=== PATIENT | female | born 1945 | race Caucasian/White ===

== ENCOUNTER 2023-03-22 09:00 | Emergency (ER) | payer MEDICARE, BC, SELFPAY ==
[2023-03-22 09:08] VITALS: BP 140/71; PULSE 89; RESP 20; TEMP 36; O2SAT 94; BMI 24.8
--- NOTE | 2023-03-22 09:20 | ED.GENADULT ---
HPI - General Adult General Time Seen by Provider: 09:20 Date Seen: 03/22/23 Chief complaint: Hip Injury/Pain Stated complaint: Hip pain Time Seen by Provider: 03/22/23 09:20 Source: patient and RN notes reviewed Mode of arrival: ambulatory Limitations: no limitations History of Present Illness HPI narrative: This 77-year-old female presents to the ED of her own accord with complaint of back pain, hip pain, possible abdominal pain. She was recently started on metformin and dosage was increased. She states she has not had a bowel movement since , wonders if she could be constipated. She states she still eating, wonders were it is all going. Denies any nausea or vomiting, no fevers, no urinary symptoms. When I ask her where she is hurting today she points to her right side of her abdomen and then into the right back and flank area down to the right hip area. She states if I asked her to try to get out of bed alone she would not be able to do so due to pain. She cannot tell me if this is more abdominal pain or back pain. She does wonder about constipation. Pain is not going into the leg. It is not really hurting her in her hip to walk. She denies any trauma. Sounds if it hurts with movement but that there is also abdominal discomfort. Related Data Home Medications Medication Instructions Recorded Confirmed amlodipine 2.5 mg tablet 2.5 mg PO BID 03/22/23 03/22/23 metformin 500 mg tablet,extended 500 mg PO DAILY 03/22/23 03/22/23 release 24 hr Allergies Allergy/AdvReac Type Severity Reaction Status Date / Time No Known Drug Allergies Allergy Verified 03/22/23 09:15 Review of Systems Status of ROS: Reports: 6 or more systems reviewed and unremarkable except as noted in History and below PFSH PFS Social History Smoking Status: Never smoker Do you use any of these nicotine containing products: None Second hand tobacco smoke exposure: No How often do you have a drink containing alcohol: monthly or less How often do you have six or more drinks on one occasion: Never AUDIT-C Alcohol total score: 1 Non-prescribed substance use: denies use service: No Exam Const: Vital Signs, click to edit/add: Vital Signs - 24 hr 03/22/23 09:08 03/22/23 11:11 03/22/23 13:12 Temperature 96.8 F L 99.6 F Pulse Rate [Pulse Oximeter] 89 88 90 Respiratory Rate 20 16 20 Blood Pressure [Le ft Upper Arm] 140/71 H 137/70 125/60 Pulse Oximetry 94 97 95 Oxygen Delivery Me thod Room Air Room Air Room Air Documenting provider has reviewed patient's vital signs: yes Common normals: no apparent distress, average body habitus, oriented x3, no limitations, healthy appearing, alert and well nourished General appearance: cooperative, comfortable, well kempt and well developed HENMT: Common normals: normocephalic, head/scalp atraumatic, hearing grossly normal bilaterally, external ears normal, external nose normal, nasal mucous membranes and turbinates normal, moist oral mucous membranes and oropharynx normal Head and scalp: normocephalic and atraumatic Face and sinus: normal facial exam Nose: external nose normal and nasal mucous membranes and turbinates normal External ear: external ears normal Eye: Common normals: PERRL, EOMs intact bilaterally, conjunctivae normal and no scleral icterus Conjunctiva: conjunctiva(e) normal Pupil: PERRL Neck & C-Spine: Common normals: full ROM, no lymphadenopathy and supple Resp: Common normals: normal respiratory effort, no retractions, no use of accessory muscles and clear to auscultation bilaterally Effort & inspection: able to speak in complete sentences Auscultation: clear to auscultation bilaterally Cardio: Common normals: regular rate, regular rhythm, S1 normal heart sound, S2 normal heart sound, no gallops and no clicks Rate: regular rate Rhythm: regular rhythm Heart sounds: S1 normal and S2 normal Other: Soft systolic murmur, about 1/6, heard best upper sternal borders. GI: Common normals: Normal to inspection, nondistended, normoactive bowel sounds present, soft to palpation, non-tender, no hepatosplenomegaly, no masses and no bruits Palpation: soft and no hepatosplenomegaly : Common normals: no CVA tenderness Bladder/kidney exam: no CVA tenderness Back & Pelvis: Common normals: no CVA tenderness, thoracic and lumbar spine normal to inspection, no thoracic nor lumbar tenderness and straight leg raise negative bilaterally Other: Seems to have some discomfort when ask her to roll to her side but I cannot palpate any reproducible pain along the ribs her paraspinous muscles, midline back. Extremity: Common normals: normal to inspection and full ROM Neuro: Common normals: oriented x3 Sensorium/orientation: alert Psych: Appearance: well kempt Course Course Hospital Course: It is difficult to differentiate on exam and history whether not this is musculoskeletal or potential abdominal pain. I am going to start with plain films of her lumbar spine as well as flat and upright of her abdomen. She is reporting diminished stooling, possible constipation. Will look at the plain films of her abdomen and see if there is a significant stool burden, rule out any obstructive pathology. She is still taking in orals, no nausea vomiting, clinically would make this much less likely to be any obstructive pathology. I will obtain baseline labs. She seems to be actually comfortable. Will see what we can find on the plain films and laboratory evaluation. Reevaluation(s) Time of Reevaluation #1: 10:47 Reevaluation #1: Reviewed with patient the findings of constipation and dilated bowel on her abdominal film. Her white blood count is elevated with predominance of neutrophils. We will give her an Enemeez but I also think we really should do a CT of her abdomen to ensure no underlying pathology. She does agree to this. Time of Reevaluation #2: 13:23 Reevaluation #2: Have reviewed that her CT is only showing constipation, there is also a 2.1 cm left adnexal cystic lesion with a follow-up outpatient pelvic ultrasound recommended. I do not feel that this ovarian cyst is responsible for any of her symptoms clinically from what I am seeing. She thought she had MiraLax at home but had a recent move, could not find it. We are going to have her re-initiate some layer a lax, good a clear liquid diet for 24-48 hours until she started stooling, use senna for the next 24-48 hours with the MiraLax. She will need the ultrasound obtained outpatient, will have her follow up in clinic. There certainly is some degenerative changes on her x-ray but her exam and clinical picture is not supportive of any radiculopathy. Vital Signs Vital signs: Initial Vital Signs Temperature 96.8 F L 03/22/23 09:08 Temperature Source Temporal Artery Scan 03/22/23 09:08 Pulse Rate 89 06/26/23 09:08 Respiratory Rate 20 03/22/23 09:08 Blood Pressure 140/71 H 03/22/23 09:08 Blood Pressure Mean 94 03/22/23 09:08 Blood Pressure Position Supine 03/22/23 09:08 Pulse Oximetry 94 03/22/23 09:08 Oxygen Delivery Method Room Air 03/22/23 09:08 Vital Signs Temperature 96.8 F L 03/22/23 09:08 Pulse Rate 89 03/22/23 09:08 Respiratory Rate 20 03/22/23 09:08 Blood Pressure 140/71 H 03/22/23 09:08 Pulse Oximetry 94 03/22/23 09:08 Oxygen Delivery Method Room Air 03/22/23 09:08 Temperature 99.6 F 03/22/23 11:11 Pulse Rate 90 03/22/23 13:12 Respiratory Rate 20 03/22/23 13:12 Blood Pressure 125/60 03/22/23 13:12 Pulse Oximetry 95 03/22/23 13:12 Oxygen Delivery Method Room Air 03/22/23 13:12 Medical Decision Making Lab Data Lab results reviewed: Yes I reviewed the patient's lab results Labs: Lab Results 03/22/23 Range/Units 10:08 WBC 13.91 H (4.50-11.00) K/uL RBC 4.64 (4.00-5.20) m/uL Hgb 12.6 (12.0-16.0) gm/dL Hct 38.3 (33.0-51.0) % MCV 83 (80-100) fL MCH 27 (26-34) pg MCHC 33 (32-36) gm/dL RDW Coeff of [place] 13.9 (11.5-15.5) % Plt Count 206 (140-440) K/uL Neut % (Auto) 91.6 H (42.0-72.0) % Lymph % (Auto) 2.5 L (20-44) % [place] % (Auto) 5.3 (0.0-11.0) % Eos % (Auto) 0.1 (0.0-7.0) % Baso % (Auto) 0.1 (0.0-3.0) % Neut # (Auto) 12.70 H (1.7-7.0) K/uL Lymph # (Auto) 0.30 L (0.90-2.90) K/uL [place] # (Auto) 0.70 (0.00-0.90) K/UL Eos # (Auto) 0.00 (0.00-0.50) K/uL Baso # (Auto) 0.00 (0.00-0.30) K/uL Sodium 135 (135-149) mmol/L Potassium 4.0 (3.6-5.1) mmol/L Chloride 101 (96-114) mmol/L Carbon Dioxide 25 (20-32) mmol/L BUN 12 (7-30) mg/dL Creatinine 0.7 (0.5-1.5) mg/dL Estimated Creat Clear 39.59 Estimated GFR 90 ml/min Glucose 243 H (60-115) mg/dL Lactate 1.0 (0.5-1.9) mmol/L Calcium 9.0 (8.4-10.6) mg/dL Total Bilirubin 0.6 (0.1-1.5) mg/dL AST 22 (12-35) U/L ALT 22 (4-35) U/L Alkaline Phosphatase 74 (40-150) U/L C-Reactive Protein 25.7 H (0.5-1.0) mg/dL Total Protein 7.4 (6.0-8.3) g/dL Albumin 4.1 (3.3-5.0) g/dL Lipase 56 (23-300) U/L Imaging Data Abdominal x-ray: Attestation: I have reviewed the pertinent imaging results. My impression: See stool burden in the colon and dilated colon, await Radiology over-read Radiologist's impression: Patient: YOSSI WINTER Facility:?[facility] Patient ID:?[id number] Site Patient ID:?[id number]. Site :?1945 Study:?XRay Abdomen 2 views-03/22/2023 9:59:18 AM Ordering Physician:Jennifer López Final Report: INDICATION: Complaints of constipation TECHNIQUE: Upright and supine views. COMPARISON: None available FINDINGS: There is a nonspecific, nonobstructive bowel gas pattern. There is a moderate to severe diffuse amount of intracolonic fecal distention. There is no intra-abdominal free air or pathologic calcification. There is no acute osseous abnormality. IMPRESSION: Moderate to severe stool seen throughout the colon consistent with constipation. Dictated by Rory Hastings MD @ 03/22/2023 10:22:20 AM (Electronic Signature) XR lumbar spine: Attestation: I have reviewed the pertinent imaging results. Radiologist's impression: Patient: [facility] Facility:?[facility] Patient ID:?[id number] Site Patient ID:?[id number]. Site :?1945 Study:?XRay Spine Lumbar 2 views-03/22/2023 9:59:51 AM Ordering Physician:?Stalin López Final Report: Indication: Low back pain Comparison: None available. Technique: AP and lateral views lumbar spine were obtained. Findings: The lumbar vertebral body heights are grossly maintained with straightening of the normal lumbar lordosis. There is anterolisthesis of L4 on L5. There is no evidence of displaced fracture or dislocation. There is moderate multilevel degenerative disc disease with disc height loss and marginal osteophyte formation. There is moderate facet arthrosis. The soft tissues are unremarkable. Impression: Moderate degenerative changes of the lumbar spine without acute osseous abnormality. Dictated by Rory Hastings MD @ 03/22/2023 10:27:03 AM (Electronic Signature) CT scan - abdomen: Attestation: I have reviewed the pertinent imaging results. Radiologist's impression: Patient: [facility] Facility:?[facility] Patient ID:?[id number] Site Patient ID:?[id number]. Site :?1945 Study:?CT Abdomen/Pelvis w/ 69cc Fzeubj-468-1/26/2023 11:55:44 AM Ordering Physician:?Stalin López Final Report: INDICATION: Leukocytosis, abdominal pain and right flank pain. Abnormal x-ray TECHNIQUE: Axial images were obtained from the diaphragm to the pubic symphysis. Reformats were obtained in the coronal and sagittal plane. IV Contrast: 69 cc Isovue 370 Oral Contrast: None COMPARISON: None. FINDINGS: Lower chest: Basilar discoid atelectasis. Liver: Normal in contour with 15 millimeter cyst within the right lobe of the liver. Gallbladder and bile ducts: Unremarkable. No stones or inflammation. No biliary dilatation. Spleen: Calcifications within the spleen consistent with old granulomatous disease. Pancreas: Unremarkable. No mass or inflammation. Adrenal glands: Unremarkable. No nodules. Kidneys: Symmetric enhancement without hydronephrosis. Subcentimeter hypodense lesion within the lower pole left kidney, too small for characterization. Vasculature: Atherosclerosis without abdominal aortic aneurysm. GI tract: Minimal hiatal hernia. Stomach is decompressed. Small bowel decompressed. Unremarkable appendix. Large amount of stool within the colon. Pelvis: Trace free fluid in the deep pelvis. Left adnexal cyst measuring 2.1 centimeters. 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 IMPRESSION: 1. No dilated loops of large or small intestine with a large amount of stool within the colon. 2. Left adnexal cystic lesion measuring 2.1 centimeters. Follow-up outpatient pelvic ultrasound suggested. Please note that all CT scans at this facility use dose modulation, iterative reconstruction, and/or weight-based dosing when appropriate to reduce radiation dose to as low as reasonably achievable. Dictated by Preet Zuniga MD @ 03/22/2023 1:06:19 PM (Electronic Signature) Discharge Plan Discharge Clinical Impression: Cyst, ovarian, Degenerative joint disease (DJD) of lumbar spine, Acute constipation Patient Disposition: Home, Self-Care Condition: Stable Instructions: Ovarian Cyst (ED), Constipation (ED), Acute Low Back Pain (ED) Additional Instructions: Need to schedule a follow-up clinic appointment within the next week. They will need to schedule a pelvic ultrasound to further evaluate this left ovarian cyst that was seen on CT. For the constipation, initiate MiraLax 17 g daily. Would recommend going on a clear liquid diet for the next 24-48 hours as needed for ongoing constipation symptoms. Can add in senna 1-2 tablets once to twice a day as needed until stool production starts to happen. You may get significant increased abdominal cramping, hot showers, heating pad can all help with abdominal cramping. You are certainly able to take Tylenol and ibuprofen as needed for pain or symptom control, follow bottle directions dosing instructions. If you develop severe abdominal pain with fever vomiting, do recommend re-evaluation. Once you start having good stool production, can stop the senna but consider stain on MiraLax. Do recommend return to a high-fiber diet once you are stooling adequately. Activity Level: Activity as Tolerated Prescriptions: No Action amlodipine 2.5 mg tablet 2.5 mg PO BID metformin 500 mg tablet extended release 24 hr 500 mg PO DAILY Follow Up/Referrals: Conchita Hussein MD [Primary Care Provider] - Stand Alone Forms: [facility] Info Instructions
--- NOTE | 2023-03-22 09:27 | CRLHL7_ITS ---
For Patients: As a result of the Century Cures Act, medical imaging exams and procedure reports are released immediately into your electronic medical record. You may view this report before your referring provider. If you have questions, please contact your health care provider. Indication: Low back pain Comparison: None available. Technique: AP and lateral views lumbar spine were obtained. Findings: The lumbar vertebral body heights are grossly maintained with straightening of the normal lumbar lordosis. There is anterolisthesis of L4 on L5. There is no evidence of displaced fracture or dislocation. There is moderate multilevel degenerative disc disease with disc height loss and marginal osteophyte formation. There is moderate facet arthrosis. The soft tissues are unremarkable. Impression: Moderate degenerative changes of the lumbar spine without acute osseous abnormality. Dictated by Rory Hastings MD @ 03/22/2023 10:27:03 AM (Electronically Signed)
--- NOTE | 2023-03-22 09:27 | CRLHL7_ITS ---
For Patients: As a result of the Century Cures Act, medical imaging exams and procedure reports are released immediately into your electronic medical record. You may view this report before your referring provider. If you have questions, please contact your health care provider. INDICATION: Complaints of constipation TECHNIQUE: Upright and supine views. COMPARISON: None available FINDINGS: There is a nonspecific, nonobstructive bowel gas pattern. There is a moderate to severe diffuse amount of intracolonic fecal distention. There is no intra-abdominal free air or pathologic calcification. There is no acute osseous abnormality. IMPRESSION: Moderate to severe stool seen throughout the colon consistent with constipation. Dictated by Rory Hastings MD @ 03/22/2023 10:22:20 AM (Electronically Signed)
--- OUTSIDE RECORDS SUMMARY | 2023-03-22 09:42 | XMS_ITS | Continuity of Care Document ---
Author Name Unknown Organization [facility] Address [address] [place] [address] Phone Care Team Providers Care Street Inspector Name Role Phone Sacha DE LEON, Amisheela Unavailable Unavailable Allergies, Adverse Reactions, Alerts Substance Reaction Status Criticality No Known Allergies Active No Inform ation Procedures Procedure Date Office/Outpatient Visit,Est, Mod 2021 X-Ray Exam Of Neck Spine2-3 Views HOLD Office/Outpatient Visit,Est, Mod 2018 X-Ray Exam Of Neck Spine2-3 Views Office/Outpatient Visit,Est, Mod 2017 X-Ray Exam Of Neck Spine2-3 Views Postop Followup Visit X-Ray Exam Of Neck Spine2-3 Views Postop Followup Visit X-Ray Exam Of Neck Spine2-3 Views Pa Neck Spine Fuse & Removal Addl Pa Addl Neck Spine Fusion Neck Spine Fusion (Cerv,Below C2) Pa Assist Spine Fusion, Each Add'Lverteb ra Pa Assist Insert Spine Seg Fix, Post, 3- 6 Seg Neck Spine Fuse & Removal Addl 18 Addl Neck Spine Fusion Neck Spine Fusion (Cerv,Below C2) Spine Fusion, Each Add'Lvertebra 2017 Insert Spine Seg Fix, Post, 3-6 Seg Allograft, Spine Surg, Structural Office/Outpatient Visit,New, Mod 2017 X-Ray Exam Of Neck Spine, 4+ Views Advance Directives Directive Yes / No Effective Date File Name No Information Encounters Encounter Description Practice Location Reason(s) For Visit Diagnoses Date Provider Providers Copied on Encounter Office/Outpat ient Visit,Est, Mod [facility], [address], [place], [place], [id number], [place] tel:[phone] [facility] No Information 2 [facility]a [facility], [address] [place] [address], [place], [place], [id number] , [place]. tel:[phone] Referring Provider: Adama Rayo, [address], [address]. tel:[phone] Office/Outpat ient Visit,Est, Mod [facility], [address], [place], [place], [id number], [place] tel:[phone] [facility] Post Op - Normal Follow-upArth rodesis status 9 [facility], [address] [place] [address], [place], [place], [id number] , [place]. tel:[phone] Referring Provider: Adama Rayo [address], [address]. tel:[phone] Office/Outpat ient Visit,Est, Mod [facility], [address], [place], [id number], [place] tel:[phone] [facility] Spinal stenosis, cervical region 201 8 Иван Flowers. [address] [place] [address], [facility], [place], [id number] , [place]. tel:[phone] Referring Provider: Adama Rayo [address], [address]. tel:[phone] [facility], [address], [place], [id number], [place] tel:[phone] [facility] Arthrodesis status Иван Flowers. [address] [place] [address] [place], [id number] , [place]. tel:[phone] Referring Provider: Adama Rayo [address], [address]. tel:[phone] [facility], [address], [place], [id number], [place] tel:[phone] [facility] Post Op - Normal Follow-upArth rodesis status 8 Mehbod Amir. [facility], [address] [place] [address], [place], [place], [id number] , [place]. tel:[phone] Referring Provider: Adama Rayo [address], [address]. tel:[phone] [facility], [address], [place], [id number], [place] tel:[phone] [facility] No Information Иван Flowers. [address] [place] [address], [place], [id number] , [place]. tel:[phone] Referring Provider: Adama Rayo [address], [address]. tel:[phone] [facility], [address], [place], [id number], [place] tel:[phone] [facility] No Information 8 Mehbod Amir. [facility] [place], [address] [place] [address], [place], [place], [id number] , [place]. tel:[phone] Referring Provider: Adama Rayo [address], [address]. tel:[phone] Office/Outpat ient Visit,New, Mod [facility], [address], [place], [place], [id number], tel:[phone] [facility] - [facility] Cervical disc disorder w myelopathy, high cervical region 8 Sacha [facility], [address], [place], [place], [id number] , [place]. tel:[phone] Referring Provider: Adama Rayo, [facility] [address] [facility], [place], [address]. tel:[phone] Family History Family Member Type Diagnosis Age At Onset No Information Payers Payer name Insurance type Covered libertarian ID Maykel guzmán(s) [facility] [id number] Medicare [facility] [id number] Social History Type Description Quantity Date Captured Comments Alcohol Use Details Unknown Caffeine Use Details Unknown Tobacco Use Status Never smoked tobacco 2021 Smoking Status Never smoker Non-Smoking Tobacco Use Details : No Details Available : No Details Available Sex Female Vital Signs Date / Time: Height Weight BMI Pulse Rate Blood Pressure Temperature Respiratory Rate Body Surface Area Head Circumference Head Circ. Percentile Wt./Ralf. Percentile BMI percentile Pulse Ox Inhaled Ox 11:51 AM 63.50 in 67.948 kg (149.80 lbs) 26.1 2 kg/m eter (2) Chief Complaint And Reason For Visit No Information Reason For Referral Reason For Referral No Information Plan Of Treatment Date Type Action Status Future Order: Radiology Order AP Lateral Cervical (APlatcerv), Ordered on: Ordered Future Order: Radiology Order F/ E Cervical (F/Ecervical), Ordered on: Ordered History Of Present Illness Encounter Date Complaint History Of Prese nt Illness No Information Functional Status Date Functional Assessmen t No Information Instructions Date Instruction Additional Infor mation No Information Assessments Type Assessment Date No Information Patient Care Teams Name Effective Dates (start - stop) Status Members No Information
--- OUTSIDE RECORDS SUMMARY | 2023-03-22 09:42 | XMS_ITS | Continuity of Care Document ---
Author Name Unknown Organization [facility] Address [address] [place] [address] Phone Care Team Providers Care Fire Technology Instructor Name Role Phone Sacha DE LEON, Amisheela [...] C, [address], [place], [id number], [place] tel:[phone] [facility] No Information 2 Sacha Carolina [facility], [address] [place] [address], [place], [place], [id number] , [place]. tel:[phone] Referring Provider: Adama Rayo, [address], [address]. tel:[phone] Office/Outpat ient Visit,Est, Mod [facility], [address], [place], [id number], [place] tel:[phone] [facility] Post Op - Normal Follow-upArth rodesis status 9 [facility], [address] [place] [address], [place], [place], [id number] , [place]. tel:[phone] Referring Provider: Adama Rayo [address], [address]. tel:[phone] Office/Outpat ient Visit,Est, Mod [facility], [address], [place], [id number], [place] tel:[phone] [facility] Spinal stenosis, cervical region 201 8 Иван Flowers. [address] [place] [address] 600, [facility], [place], [id number] , [place]. tel:[phone] Referring Provider: Adama Rayo [address], [address]. tel:[phone] [facility], [address], [place], [id number], [place] tel:[phone] [facility] Arthrodesis status Иван Flowers. [address] [place] [address] [place], [id number] , [place]. tel:[phone] Referring Provider: Adama Rayo [address], [address]. tel:[phone] [facility], [address], [place], [id number], [place] tel:[phone] [facility] Post Op - Normal Follow-upArth rodesis status 8 Mehbod Amir. [facility], [address] [place] [address], [place], [place], [id number] , [place]. tel:[phone] Referring Provider: Adama Rayo [address], [address]. tel:[phone] [facility], [address], [place], [id number], [place] tel:[phone] [facility] No Information Иван Flowers. [address] [place] [address], [place], [id number] , [place]. tel:[phone] Referring Provider: Adama Rayo [address], [address]. tel:[phone] [facility], [address], [place], [id number], [place] tel:[phone] [facility] No Information 8 Mehbod Amir. [facility], [address] [place] [address], [place], [place], [id number] , [place]. tel:[phone] Referring Provider: Adama Rayo [address], [address]. tel:[phone] Office/Outpat ient Visit,New, Mod [facility], [address], [place], [place], [id number], tel:[phone] [facility] Cervical disc disorder w myelopathy, high cervical region 8 Sacha Carolina [facility], [address], [place], [place], [id number] , [place]. tel:[phone] Referring Provider: Adama Rayo, [facility] [address] [facility], [place], [address]. tel:[phone] Family History Family Member Type Diagnosis Age At Onset No Information Payers Payer name Insurance type Covered libertarian ID Maykel guzmán(s) [facility] [id number] Medicare [facility] [id number] 1 Social History Type Description Quantity Date [...]
[2023-03-22 10:15] LABS: Basophils Percent Auto 0.1 % (0.0-3.0); Eosinophils Percent Auto 0.1 % (0.0-7.0); Hematocrit 38.3 % (33.0-51.0); Hemoglobin* 12.6 gm/dL (12.0-16.0); Immature Granulocytes Pct Auto 0.4 %; Lymphocytes Percent Auto 2.5 % (20-44); Mean Corpuscular HGB Conc 33 gm/dL (32-36); Mean Corpuscular Hemoglobin 27 pg (26-34); Mean Corpuscular Volume 83 fL (80-100); Monocytes Percent Auto 5.3 % (0.0-11.0); Neutrophils Percent Auto 91.6 % (42.0-72.0); Platelet Count* 206 K/uL (140-440); RDW Coefficient of Variation % 13.9 % (11.5-15.5); Red Blood Count 4.64 m/uL (4.00-5.20); White Blood Count* 13.91 K/uL (4.50-11.00)
[2023-03-22 10:18] LABS: Slide Review Reflex No
[2023-03-22 10:32] LABS: Albumin* 4.1 g/dL (3.3-5.0); Chloride* 101 mmol/L (96-114); Sodium* 135 mmol/L (135-149)
[2023-03-22 10:35] LABS: Creatinine* 0.7 mg/dL (0.5-1.5); Est. Creatinine Clearance* 39.59; Estimated Glomerular Filt Rate 90 ml/min
[2023-03-22 10:36] LABS: Alanine Aminotransferase* 22 U/L (4-35); Alkaline Phosphatase* 74 U/L (40-150); Aspartate Amino Transferase* 22 U/L (12-35); Bilirubin Total* 0.6 mg/dL (0.1-1.5); Blood Urea Nitrogen* 12 mg/dL (7-30); Carbon Dioxide* 25 mmol/L (20-32); Glucose* 243 mg/dL (60-115); Lipase* 56 U/L (23-300); Total Protein* 7.4 g/dL (6.0-8.3)
--- NOTE | 2023-03-22 10:45 | CRLHL7_ITS ---
For Patients: As a result of the Century Cures Act, medical imaging exams and procedure reports are released immediately into your electronic medical record. You may view this report before your referring provider. If you have questions, please contact your health care provider. INDICATION: Leukocytosis, abdominal pain and right flank pain. Abnormal x-ray TECHNIQUE: Axial images were obtained from the diaphragm to the pubic symphysis. Reformats were obtained in the coronal and sagittal plane. IV Contrast: 69 cc Isovue 370 Oral Contrast: None COMPARISON: None. FINDINGS: Lower chest: Basilar discoid atelectasis. Liver: Normal in contour with 15 millimeter cyst within the right lobe of the liver. Gallbladder and bile ducts: Unremarkable. No stones or inflammation. No biliary dilatation. Spleen: Calcifications within the spleen consistent with old granulomatous disease. Pancreas: Unremarkable. No mass or inflammation. Adrenal glands: Unremarkable. No nodules. Kidneys: Symmetric enhancement without hydronephrosis. Subcentimeter hypodense lesion within the lower pole left kidney, too small for characterization. Vasculature: Atherosclerosis without abdominal aortic aneurysm. GI tract: Minimal hiatal hernia. Stomach is decompressed. Small bowel decompressed. Unremarkable appendix. Large amount of stool within the colon. Pelvis: Trace free fluid in the deep pelvis. Left adnexal cyst measuring 2.1 centimeters. 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 IMPRESSION: 1. No dilated loops of large or small intestine with a large amount of stool within the colon. 2. Left adnexal cystic lesion measuring 2.1 centimeters. Follow-up outpatient pelvic ultrasound suggested. Please note that all CT scans at this facility use dose modulation, iterative reconstruction, and/or weight-based dosing when appropriate to reduce radiation dose to as low as reasonably achievable. Dictated by Preet Zuniga MD @ 03/22/2023 1:06:19 PM (Electronically Signed)
[2023-03-22 10:51] LABS: C Reactive Protein* 25.7 mg/dL (0.5-1.0)
[2023-03-22 11:11] VITALS: BP 137/70; PULSE 88; RESP 16; TEMP 37.6; O2SAT 97
[2023-03-22] MEDS: DOCUSATE SODIUM/BENZOCAINE 5 ML ENEMA PR (11:57)
[2023-03-22] MEDS: IBUPROFEN 200 MG TABLET 400 MG PO (12:34)
[2023-03-22 13:12] VITALS: BP 125/60; PULSE 90; RESP 20; O2SAT 95
== END 2023-03-22 14:15 | disposition home or self-care (01) ==
PROVIDERS: Emergency Provider Family Medicine; PCP Family Medicine
DX: K59.00 Constipation, unspecified (principal); N83.202 Unspecified ovarian cyst, left side; M47.816 Spondylosis without myelopathy or radiculopathy, lumbar region
CPT/HCPCS: 36415; 72100; 74019; 74177; 80053; 83605; 83690; 85025; 86140; 99284; A9270; Q9967

== ENCOUNTER 2023-03-24 13:30 | Inpatient (IN) | payer MEDICARE, BC, SELFPAY ==
[2023-03-24] VITALS (10 sets, daily range): BP systolic 112–138; BP diastolic 64–101; PULSE 88–98; RESP 18; TEMP 36.7–37.2; O2SAT 93–99; BMI 25.2; BMI 26.6
--- NOTE | 2023-03-24 14:00 | CRLHL7_ITS ---
For Patients: As a result of the Century Cures Act, medical imaging exams and procedure reports are released immediately into your electronic medical record. You may view this report before your referring provider. If you have questions, please contact your health care provider. Indication: Abdomen pain. Technique: Abdomen 2 view. Comparison: None. Findings: Bowel: Bowel pattern is normal. Above average colonic stool volume. Other: No sign of free air. No sign of soft tissue mass. No suspicious calcifications. Osseous structures are unremarkable for age. Impression: Above average colonic stool volume. Dictated by Elsi Kimble MD @ 03/24/2023 2:31:07 PM (Electronically Signed)
--- NOTE | 2023-03-24 14:05 | ED.GENADULT ---
HPI - General Adult General Chief complaint: Constipation Stated complaint: Pain in legs Time Seen by Provider: 03/24/23 13:34 Source: patient Mode of arrival: ambulatory Limitations: no limitations History of Present Illness HPI narrative: 77-year-old female coming in today with continued constipation. States she was diagnosed with constipation 2 days ago and has been taking daily MiraLax without any relief. She states that she has been passing minimal gas, has passed gas twice today. She stated that her symptoms started about a week ago, she did have a very small bowel movement last but nothing since. She states that about the same time started having right-sided leg pain located in the right buttocks radiating down the side of the thigh all the way to just above the knee. This pain can radiate up into the flank depending on her position. She denies nausea or vomiting. She states that in the last couple of days she has also noticed that she has been having some sensations of weakness in the left extremity as well. She denies falling or tripping. She states that it uncomfortable but not necessarily painful, with the majority of pain on the right side. She has been taking ibuprofen and Tylenol for discomfort which does help some. She states that if it is time for her to take her medication and she misses her time she does begin to shiver. She denies fevers that she is aware of. No nausea or vomiting. Past medical history significant for diet-controlled diabetes, hypertension. She was started on metformin just this month. Past surgical history includes a neck surgery several years ago. Patient is uncertain of her last colonoscopy. Related Data Home Medications Medication Instructions Recorded Confirmed amlodipine 2.5 mg tablet 2.5 mg PO BID 03/22/23 03/24/23 metformin 500 mg tablet,extended 1,000 mg PO DAILY 03/22/23 03/24/23 release 24 hr Allergies Allergy/AdvReac Type Severity Reaction Status Date / Time No Known Drug Allergies Allergy Verified 03/22/23 09:15 Review of Systems Status of ROS: Reports: 10 or more systems reviewed and unremarkable except as noted in History and below [facility] Social History Smoking Status: Never smoker Do you use any of these nicotine containing products: None Second hand tobacco smoke exposure: No How often do you have a drink containing alcohol: monthly or less How often do you have six or more drinks on one occasion: Never AUDIT-C Alcohol total score: 1 Non-prescribed substance use: denies use service: No Exam Narrative: Exam Narrative: Well-nourished well-developed patient in no acute distress. Alert and oriented. Answers questions appropriately. Mood and affect are appropriate. Thoughts are goal oriented and rational. No tangential or magical thinking noted. Patient speaks in full sentences without needing to catch their breath. HEENT: Normocephalic atraumatic. Pupils are equally round reactive to light. Extraocular muscles are intact. Conjunctivae are moist without any icterus noted. Moist mucous membranes. Posterior pharynx is normal. Neck is soft without any lymphadenopathy or thyromegaly. No masses are appreciated. Cardiovascular: Heart is regular rate and rhythm S1 and S2 are present with a 2/6 systolic murmur. Lungs: Clear to auscultation bilaterally no wheezes rhonchi or rales are appreciated. Patient takes deep breaths without any discomfort. Abdomen: Soft and nontender , mildly distended with normal bowel sounds. No guarding or rebound tenderness. Extremities: Bilateral lower extremities are without edema. Normal DP and PT pulses. Skin: Well perfused without any obvious rashes. Const: Vital Signs, click to edit/add: Vital Signs - 24 hr 03/24/23 13:35 Temperature 98.1 F Pulse Rate [Right Pulse Oximeter] 89 Respiratory Rate 18 Blood Pressure [Ri ght Upper Arm] 122/73 Pulse Oximetry 99 Oxygen Delivery Me thod Room Air Course Course Hospital Course: Repeated a flat and upright x-ray to make sure there is no new evidence of obstruction noted, this showed again a large amount of stool but no evidence of obstruction. Fleets enema was attempted without success. Given amount of pain that she is having in her back and leg, I go ahead and proceed with a lumbar MRI which showed 2 small abscesses in her right psoas muscle. Did go to re-examine the patient at this time and to discuss findings with her, and patient was quite clammy. Patient denies any recent surgical procedures, no injections in her back. At this time we did put her on monitor car operator with continuous pulse ox. IV was started she received IV fluids. Labs were drawn. I did speak to our surgeon, Dr. Sullivan, who looked at the images and recommended admission with IV antibiotics. IV Zosyn and vanc were started. Patient will be admitted for further management. Vital Signs Vital signs: Initial Vital Signs Temperature 98.1 F 03/24/23 13:35 Temperature Source Temporal Artery Scan 03/24/23 13:35 Pulse Rate 89 03/24/23 13:35 Respiratory Rate 18 03/24/23 13:35 Blood Pressure 122/73 03/24/23 13:35 Blood Pressure Mean 89 03/24/23 13:35 Blood Pressure Position Sitting 03/24/23 13:35 Pulse Oximetry 99 03/24/23 13:35 Oxygen Delivery Method Room Air 03/24/23 13:35 Vital Signs Temperature 98.1 F 03/24/23 13:35 Pulse Rate 89 03/24/23 13:35 Respiratory Rate 18 03/24/23 13:35 Blood Pressure 122/73 03/24/23 13:35 Pulse Oximetry 99 03/24/23 13:35 Oxygen Delivery Method Room Air 03/24/23 13:35 Temperature 98.1 F 03/24/23 13:35 Pulse Rate 89 03/24/23 13:35 Respiratory Rate 18 03/24/23 13:35 Blood Pressure 122/73 03/24/23 13:35 Pulse Oximetry 99 03/24/23 13:35 Oxygen Delivery Method Room Air 03/24/23 13:35 Medical Decision Making MDM Narrative Medical decision making narrative: 77-year-old female with infection and abscess of her psoas muscle on the right. Plan per above. Lab Data Labs: Lab Results 03/24/23 Range/Units 17:13 WBC 13.82 H (4.50-11.00) K/uL RBC 4.42 (4.00-5.20) m/uL Hgb 11.9 L (12.0-16.0) gm/dL Hct 35.4 (33.0-51.0) % MCV 80 (80-100) fL MCH 27 (26-34) pg MCHC 34 (32-36) gm/dL RDW Coeff of Rocky 14.2 (11.5-15.5) % Plt Count 290 (140-440) K/uL Neut % (Auto) 90.7 H (42.0-72.0) % Lymph % (Auto) 2.3 L (20-44) % Appling % (Auto) 5.6 (0.0-11.0) % Eos % (Auto) 0.0 (0.0-7.0) % Baso % (Auto) 0.1 (0.0-3.0) % Neut # (Auto) 12.50 H (1.7-7.0) K/uL Lymph # (Auto) 0.30 L (0.90-2.90) K/uL Appling # (Auto) 0.80 (0.00-0.90) K/UL Eos # (Auto) 0.00 (0.00-0.50) K/uL Baso # (Auto) 0.00 (0.00-0.30) K/uL Sodium 132 L (135-149) mmol/L Potassium 4.1 (3.6-5.1) mmol/L Chloride 99 (96-114) mmol/L Carbon Dioxide 21 (20-32) mmol/L BUN 18 (7-30) mg/dL Creatinine 0.8 (0.5-1.5) mg/dL Estimated Creat Clear 39.59 Estimated GFR 76 ml/min Glucose 332 H (60-115) mg/dL Lactate 1.3 (0.5-1.9) mmol/L Calcium 9.2 (8.4-10.6) mg/dL Total Bilirubin 0.6 (0.1-1.5) mg/dL Direct Bilirubin 0.2 (0.0-0.5) mg/dL AST 21 (12-35) U/L ALT 22 (4-35) U/L Alkaline Phosphatase 110 (40-150) U/L C-Reactive Protein 41.1 H (0.5-1.0) mg/dL Total Protein 7.2 (6.0-8.3) g/dL Albumin 3.8 (3.3-5.0) g/dL Imaging Data Abdominal x-ray: Attestation: I have reviewed the pertinent imaging results. Radiologist's impression: Abdomen 2 view. Comparison: None. Findings: Bowel: Bowel pattern is normal. Above average colonic stool volume. Other: No sign of free air.? No sign of soft tissue mass.? No suspicious calcifications. Osseous structures are unremarkable for age.? Impression: Above average colonic stool volume. Discharge Plan Discharge Clinical Impression: Abscess, psoas Patient Disposition: Admitted As Inpatient Condition: Stable
--- NOTE | 2023-03-24 14:08 | CRLHL7_ITS ---
For Patients: As a result of the 21st Century Cures Act, medical imaging exams and procedure reports are released immediately into your electronic medical record. You may view this report before your referring provider. If you have questions, please contact your health care provider. Indication: Back pain, stool retention, radiculopathy Technique: Multiplanar, multisequence, MRI of the lumbar spine, obtained without contrast. Comparison: CT abdomen pelvis 03/22/2023 Findings: Preserved lumbar lordosis. Grade 1 anterolisthesis at L4-5. No evidence of acute osseous abnormality. The conus medullaris terminates at approximately L1-2. There is asymmetric intramuscular edema throughout the right psoas muscle, containing a couple of cystic appearing collections measuring 9 x 11 mm at the superior L3 level (series 7 image 19), and 9 x 13 mm at the L3-4 level (series 7 image 24). There are right lateral projecting disc-osteophyte complexes at the L2-3 and L3-4 levels. However no suspicious intradiscal fluid signal or aggressive osseous erosions are identified. T12-L1, L1-L2: No significant neural foraminal or spinal canal stenosis. L2-L3: Disc degeneration, mild diffuse disc bulge, right lateral eccentric disc-osteophyte complex, mild facet arthropathy. No significant neural foraminal stenosis. Mild spinal canal narrowing. L3-L4: Mild diffuse disc bulge with right lateral eccentric disc-osteophyte complex, mild facet arthropathy. Mild bilateral neural foraminal narrowing. Mild spinal canal narrowing. L4-L5: Anterolisthesis, disc unroofing/diffuse bulge, moderate facet arthropathy. Moderate bilateral neural foraminal stenosis. Moderate spinal canal stenosis. L5-S1: Mild facet arthropathy. Mild left neuroforaminal narrowing. No significant right neural foraminal or spinal canal stenosis. Impression: 1. Intramuscular edema throughout the proximal right psoas, with a couple of cystic-appearing intermuscular collections measuring slightly greater than 1 cm at the L3-L4 levels, suspicious for intramuscular abscesses. Clinical correlation advised. 2. No suspicious intradiscal fluid signal or aggressive osseous erosions at the L2-3 or L3-4 levels to suggest discitis-osteomyelitis at this time. 3. At L2-3, mild spinal canal narrowing. 4. At L3-4, mild bilateral neural foraminal narrowing, and mild spinal canal narrowing. 5. At L4-5, moderate bilateral neural foraminal stenosis, and moderate spinal canal stenosis. Dictated by Alondra Cat MD @ 03/24/2023 4:48:48 PM (Electronically Signed)
--- OUTSIDE RECORDS SUMMARY | 2023-03-24 14:24 | XMS_ITS | Continuity of Care Document ---
Author Name Unknown Organization [facility] Address [address] [place] [address] Phone Care Team Providers Care Paraprofessional Aide Name Role Phone Sacha DE LEON, Amisheela [...] C, [address], [place], [place], [id number], [place] tel:[phone] [facility] No Information 2 Sacha Carolina [facility], [address] [place] [address], [place], [place], [id number] , [place]. tel:[phone] Referring Provider: Adama Rayo, [address], [address]. tel:[phone] Office/Outpat ient Visit,Est, Mod [facility], [address], [place], [id number], [place] tel:[phone] [facility] Post Op - Normal Follow-upArth rodesis status 9 [facility], [address] [place] [address], [place], [place], [id number] , [place]. tel:[phone] Referring Provider: Adama Rayo [address], [address]. tel:[phone] Office/Outpat ient Visit,Est, Mod [facility], [address], [place], [id number], [place] tel:[phone] [facility] Spinal stenosis, cervical region 201 8 Иван Flowers. [address] [place] [address], [facility], [place], [id number] , [place]. tel:[phone] Referring Provider: Adama Rayo [address], [address]. tel:[phone] [facility], [address], [place], [id number], [place] tel:[phone] [facility] Arthrodesis status Иван Flowers. [address] [place] [address] [place], [id number] , [place]. tel:[phone] Referring Provider: Adama Rayo [address], [address]. tel:[phone] [facility], [address], [place], [id number], [place] tel:[phone] [facility] Post Op - Normal Follow-upArth rodesis status 8 Mehbod Amir. [facility], [address] [place] [address], [place], [place], [id number] , [place]. tel:[phone] Referring Provider: Adama Rayo [address], [address]. tel:[phone] [facility], [address], [place], [id number], [place] tel:[phone] [facility] No Information Иван Flowers. [address] [place] [address], [place], [id number] , [place]. tel:[phone] Referring Provider: Adama Rayo [address], [address]. tel:[phone] [facility], [address], [place], [id number], [place] tel:[phone] [facility] No Information 8 Mehbod Amir. [facility], [address] [place] [address], [place], [place], [id number] , [place]. tel:[phone] Referring Provider: Adama Rayo [address], [address]. tel:[phone] Office/Outpat ient Visit,New, Mod [facility], [address], [place], [place], [id number], tel:[phone] [facility] Cervical disc disorder w myelopathy, high cervical region 8 Sacha Carolina [facility], [address], [place], [place], [id number] , [place]. tel:[phone] Referring Provider: Adama Rayo, [facility] [address] [facility], [place], [address]. tel:[phone] Family History Family Member Type Diagnosis Age At Onset No Information Payers Payer name Insurance type Covered green party ID Maykel guzmán(s) [facility] [id number] Medicare [facility] [id number] 1 Social History Type Description Quantity Date [...]
[2023-03-24] MEDS: IBUPROFEN 200 MG TABLET 600 MG PO (14:44)
--- NOTE | 2023-03-24 15:33 | ED.NURSE ---
Pt instructed to lay on LEFT side for administration of Fleets Enema. Pt tolerated enema well. She did not immediately feel as though she had to have a BM. This proposal manager writer will continue to monitor and assess GI status.
--- NOTE | 2023-03-24 16:17 | ED.NURSE ---
Pt returned from MRI @ 1611 and was assisted onto the commode to attempt to have a BM. This va underwriter will evaluate post commode use.
--- NOTE | 2023-03-24 16:57 | ED.NURSE ---
At approximately 1640 pt pushed call button indicating she was done using the commode. Pt did not have any results from the enema at that time. Oily liquid noted in bottom of commode consistent with Fleets Enema. Provider notified @ [phone]
[2023-03-24 17:26] LABS: Lactate* 1.3 mmol/L (0.5-1.9)
[2023-03-24 17:29] LABS: Basophils Percent Auto 0.1 % (0.0-3.0); Hematocrit 35.4 % (33.0-51.0); Hemoglobin* 11.9 gm/dL (12.0-16.0); Immature Granulocytes Pct Auto 1.3 %; Lymphocytes Percent Auto 2.3 % (20-44); Mean Corpuscular HGB Conc 34 gm/dL (32-36); Mean Corpuscular Hemoglobin 27 pg (26-34); Mean Corpuscular Volume 80 fL (80-100); Monocytes Percent Auto 5.6 % (0.0-11.0); Neutrophils Percent Auto 90.7 % (42.0-72.0); Platelet Count* 290 K/uL (140-440); RDW Coefficient of Variation % 14.2 % (11.5-15.5); Red Blood Count 4.42 m/uL (4.00-5.20); White Blood Count* 13.82 K/uL (4.50-11.00)
[2023-03-24] MEDS: 0.9 % SODIUM CHLORIDE 1000 ml 1,000 ML IV (17:30)
[2023-03-24 17:34] LABS: Slide Review Reflex No
[2023-03-24 17:42] LABS: Albumin* 3.8 g/dL (3.3-5.0); Chloride* 99 mmol/L (96-114); Sodium* 132 mmol/L (135-149)
[2023-03-24 17:43] LABS: Potassium* 4.1 mmol/L (3.6-5.1)
[2023-03-24 17:45] LABS: Alkaline Phosphatase* 110 U/L (40-150); Aspartate Amino Transferase* 21 U/L (12-35); Bilirubin Direct* 0.2 mg/dL (0.0-0.5); Bilirubin Total* 0.6 mg/dL (0.1-1.5); Carbon Dioxide* 21 mmol/L (20-32); Creatinine* 0.8 mg/dL (0.5-1.5); Est. Creatinine Clearance* 39.59; Estimated Glomerular Filt Rate 76 ml/min; Total Protein* 7.2 g/dL (6.0-8.3)
[2023-03-24 17:46] LABS: Alanine Aminotransferase* 22 U/L (4-35); Blood Urea Nitrogen* 18 mg/dL (7-30); Calcium* 9.2 mg/dL (8.4-10.6); Glucose* 332 mg/dL (60-115)
[2023-03-24] MEDS: PIPERACILLIN/TAZOBACTAM 3.375 GM in 0.9 % SODIUM CHLORIDE Mini-bag 100 ML IVPB ×2 (17:51→23:06)
--- NOTE | 2023-03-24 18:09 | ED.NURSE ---
Pt given tap water enema of approximatley 200cc warm tap water. Pt tolerated procedure well. Will continue to monitor GI status.
[2023-03-24 18:45] LABS: C Reactive Protein* 41.1 mg/dL (0.5-1.0)
--- NOTE | 2023-03-24 19:33 | PC.NURSE ---
Pt settled into room around 1850. Oriented to call light, nursing staff, and plan of care. Hand off received from ED and passed to night RN. Vitals taken. [address] and vanco running @ 125ml/hr.
--- NOTE | 2023-03-24 20:11 | PM.IMHP1 ---
Hospitalist- H&P: HPI History of Present Illness Date Seen: 03/24/23 Chief complaint: Pain in legs Narrative: Ana Edwards is a 77 year old female who presented to the emergency room with persistent constipation. It has been at least 6 days since her most recent bowel movement. She was seen in the emergency room 2 days ago and started on MiraLax without relief. No history of constipation. She has not had any nausea or vomiting; no urinary symptoms. Over the past two days, she has also noted pain in her right buttock that can radiate inferiorly or superiorly, depending on positioning. Pain has been so severe that she's had to use a walker to ambulate at home. She has had pain relief with Advil and Tylenol; notes that she feels poorly when these medications wear off. She is unsure if she has had any objective fevers. Since she has not felt well, she has been holding her metformin and aspirin; still has been taking her amlodipine. ER course and findings: - constipation on abdominal x-ray - L-spine MRI exhibited intramuscular edema through proximal right psoas muscle with cystic appearing collections consistent with intramuscular abscesses - white blood count of 13 with PMN predominance, CRP 41, lactate normal at 1.3 - blood sugar 332 - patient given tap water enema with no results - started on vancomycin and Zosyn after blood cultures collected, general surgery consulted by phone Past medical history updated below. PCP is Dr. Hussein. Review of Systems Status of ROS: Reports: 10 or more systems reviewed and unremarkable except as noted in History and below Narrative: - per chart review, last colonoscopy in [place] in 2016; hyperplastic polyp noted - patient had a root canal in early February - this morning, she noted an erythematous and painful right index finger MCP, attributed this to arthritis flare. 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 Spends winter in [place]. 3 adult daughters. Nonsmoker, rare ETOH. Full Code. What is your current living situation: I presently have a place to live Problems where you live: no known problems Problems where you live details: NA In the past 12 months, utilities in danger of being shut off: no In the past 12 mos, have been you worried that your food would run out before you had money to buy more?: never true In the past 12 mos, the food you bought just didn't last and you didn't have money to buy more?: never true Highest level of school completed/degree received: some college, no degree Smoking Status: Never smoker Do you use any of these nicotine containing products: None Second hand tobacco smoke exposure: No How often do you have a drink containing alcohol: monthly or less How often do you have six or more drinks on one occasion: Never AUDIT-C Alcohol total score: 1 Non-prescribed substance use: denies use Caffeine: Yes How often does anyone, including family, friends and others, physically hurt you: How often does anyone, including family, friends and others, insult or talk down to you: How often does anyone, including family, friends and others, threaten you with harm: How often does anyone, including family, friends and others, scream or curse at you: service: No Meds Home Medications and Allergies Home Medications Medication Instructions Recorded Confirmed Type amlodipine 2.5 mg tablet 2.5 mg PO BID 03/22/23 03/24/23 History metformin 500 mg tablet,extended 1,000 mg PO DAILY 03/22/23 03/24/23 History release 24 hr Home Medication Comments: Patient has been holding her metformin for the past 5-6 days. She typically also takes an 81 mg aspirin, has also been holding for the last 5-6 days. Allergies Allergy/AdvReac Type Severity Reaction Status Date / Time No Known Drug Allergies Allergy Verified 03/22/23 09:15 Exam Narrative: Exam Narrative: GEN: Alert and oriented, nontoxic in appearance HEENT: EOMIs bilaterally, no scleral icterus CV: RRR, No concerning murmurs R: LCTA bilaterally without concerning wheezing, air movement adequate Back: Scar noted from cervical spine surgery Ab: Distended with hypoactive bowel sounds, no tenderness to palpation, no rebound or guarding Rectal: no external hemorrhoids, no stool in rectal vault Ext: wwp, no concerning edema, discomfort in R hip and flank with certain LE movements Rheum: erythema and edema of R index finger MCP, no significant warmth Skin: No other concerning skin lesions or rashes on exposed skin Neuro: No focal deficits, no resting tremor Psych: Appropriate Const: Vital Signs, click to edit/add: Vital Signs - 24 hr 03/24/23 13:35 03/24/23 17:12 03/24/23 17:37 Temperature 98.1 F Pulse Rate 95 Pulse Rate [Right Pulse Oximeter] 89 Respiratory Rate 18 Blood Pressure 120/64 Blood Pressure [Ri ght Upper Arm] 122/73 Pulse Oximetry 99 96 95 [facility] 03/24/23 17:38 03/24/23 18:01 03/24/23 18:02 Temperature Pulse Rate 94 98 91 Pulse Rate [Right Pulse Oximeter] Respiratory Rate Blood Pressure 114/67 Blood Pressure [Ri ght Upper Arm] Pulse Oximetry 96 94 93 Oxygen Delivery Me thod 03/24/23 18:30 03/24/23 18:31 Temperature Pulse Rate 89 88 Pulse Rate [Right Pulse Oximeter] Respiratory Rate Blood Pressure 112/65 Blood Pressure [Ri ght Upper Arm] Pulse Oximetry 96 94 [facility]xygen [facility] - H&P: Result Labs Labs: Short CBC 03/24/23 Range/Units 17:13 WBC 13.82 H (4.50-11.00) K/uL Hgb 11.9 L (12.0-16.0) gm/dL Hct 35.4 (33.0-51.0) % Plt Count 290 (140-440) K/uL BMP 03/24/23 17:13 Sodium 132 L Potassium 4.1 Chloride 99 Carbon Dioxide 21 BUN 18 Creatinine 0.8 Glucose 332 H Calcium 9.2 Liver Function 03/24/23 Range/Units 17:13 Total Bilirubin 0.6 (0.1-1.5) mg/dL Direct Bilirubin 0.2 (0.0-0.5) mg/dL AST 21 (12-35) U/L ALT 22 (4-35) U/L Alkaline Phosphatase 110 (40-150) U/L Albumin 3.8 (3.3-5.0) g/dL Imaging MR - Other: Attestation: I have reviewed the pertinent imaging results. Radiologist's impression: Impression: 1. Intramuscular edema throughout the proximal right psoas, with a couple of cystic-appearing intermuscular collections measuring slightly greater than 1 cm at the L3-L4 levels, suspicious for intramuscular abscesses. Clinical correlation advised. 2. No suspicious intradiscal fluid signal or aggressive osseous erosions at the L2-3 or L3-4 levels to suggest discitis-osteomyelitis at this time. 3. At L2-3, mild spinal canal narrowing. 4. At L3-4, mild bilateral neural foraminal narrowing, and mild spinal canal narrowing. 5. At L4-5, moderate bilateral neural foraminal stenosis, and moderate spinal canal stenosis. Dictated by Alondra Cat MD @ 03/24/2023 4:48:48 PM Assessment and Plan Assessment and plan (1) Abscess, psoas: Problem comment: - Zosyn and Vancomycin initiated in ED (03/24), will continue these - General Surgery consulting. Patient NPO at midnight - Query systemic disease (recent dental work, MCP erythema/edema); blood cultures pending, TTE ordered Status: Acute (2) Acute constipation: Problem comment: - vs atypical obstruction. Minimal pain, no n/v - General Surgery (Dr. Ladd) consulted - repeat CT scan with oral contrast ordered, results pending Status: Acute (3) Essential hypertension: Problem comment: - on Amlodipine 2.5mg BID as an outpatient, will continue this Status: Acute (4) Non-insulin dependent diabetes mellitus: Problem comment: - last A1C 8.0 01/2023 - accuchecks, SSI Status: Acute Plan - per above - SCDs for ppx, defer Lovenox at this time given possible surgical intervention - Full Code status
--- NOTE | 2023-03-24 22:30 | CRLHL7_ITS ---
For Patients: As a result of the Century Cures Act, medical imaging exams and procedure reports are released immediately into your electronic medical record. You may view this report before your referring provider. If you have questions, please contact your health care provider. INDICATION: Right-sided abdominal pain, constipation TECHNIQUE: CT abdomen and pelvis acquired with oral contrast and 69 cc Isovue 370 IV contrast. COMPARISON: March 22, 2023 FINDINGS: Lower chest: Unremarkable. Liver: Simple 1.5 cm cyst in the liver. Spleen: Calcified granulomata. Pancreas: Unremarkable. Gallbladder and bile ducts: Unremarkable. Adrenal glands: Unremarkable. Kidneys: Unremarkable. GI tract: Oral contrast reaches the distal small bowel. Large amount of stool in the colon is unchanged. Appendix is normal. Vascular structures: Unremarkable. Lymph nodes: Unremarkable. Miscellaneous: There is a new rim enhancing 1.0 by 3.2 x 7.8 cm hypodensity within right psoas muscle. This is best seen on image 63 series 2 and image 74 series 4. The right psoas muscle appears mildly enlarged compared to the left. There is no retroperitoneal fat stranding. No free air or significant free fluid. Pelvic Organs: Abnormally thickened endometrium measuring 8 mm in thickness. 4.0 x 2.4 cm rim enhancing fluid collection in the left pelvis. The measures 8 Hounsfield units in density. Bones: Unremarkable for age. IMPRESSION: Large amount of stool in the colon is unchanged. New rim enhanced seen fluid collection in the right psoas muscle. Mild enlargement of the right psoas muscle compared to the left. Findings could represent hematoma or abscess. Fluid collection in the left pelvis. This could represent an abnormal ovarian cyst or abscess. There is also abnormal thickening of the endometrium. Consider pelvic ultrasound for further evaluation of these findings. Please note that all CT scans at this facility use dose modulation, iterative reconstruction, and/or weight-based dosing when appropriate to reduce radiation dose to as low as reasonably achievable. Dictated by Germania Bucio MD @ 03/25/2023 3:45:47 AM (Electronically Signed)
[2023-03-24] MEDS: OXYCODONE 5 MG TABLET PO (23:02)
[2023-03-25] VITALS (8 sets, daily range): BP systolic 113–139; BP diastolic 72–95; PULSE 70–102; RESP 16–20; TEMP 36.4–38.8; O2SAT 91–98
--- NOTE | 2023-03-25 04:24 | PM.IMPN1 ---
Subjective Date Seen: 03/25/23 Interval history: Felix Pitts Hospitalist Cross Cover Note eHospitalist was contacted by nursing staff with concern of positive blood cultures showing gram-positive cocci in chains. Chart reviewed and patient on Zosyn and vancomycin. Thank you for including Felix Garcia in the patients care. This service is available for further assistance as requested by your care team by calling [phone]. Exam Const: Vital Signs, click to edit/add: Vital Signs - 24 hr 03/24/23 13:35 03/24/23 17:12 03/24/23 17:37 Temperature 98.1 F Pulse Rate 95 Pulse Rate [Left P ulse Oximeter] Pulse Rate [Right Pulse Oximeter] 89 Respiratory Rate 18 Blood Pressure 120/64 Blood Pressure [Le ft Arm] Blood Pressure [Ri ght Upper Arm] 122/73 Pulse Oximetry 99 96 95 Oxygen Delivery Me thod Room Air 03/24/23 17:38 03/24/23 18:01 03/24/23 18:02 Temperature Pulse Rate 94 98 91 Pulse Rate [Left P ulse Oximeter] Pulse Rate [Right Pulse Oximeter] Respiratory Rate Blood Pressure 114/67 Blood Pressure [Le ft Arm] Blood Pressure [Ri ght Upper Arm] Pulse Oximetry 96 94 93 Oxygen Delivery Me thod 03/24/23 18:30 03/24/23 18:31 03/24/23 19:32 Temperature 99 F Pulse Rate 89 88 Pulse Rate [Left P ulse Oximeter] 92 Pulse Rate [Right Pulse Oximeter] Respiratory Rate 18 Blood Pressure 112/65 Blood Pressure [Le ft Arm] 138/101 H Blood Pressure [Ri ght Upper Arm] Pulse Oximetry 96 94 96 Oxygen Delivery Me thod Room Air 03/24/23 23:00 Temperature Pulse Rate Pulse Rate [Left P ulse Oximeter] 91 Pulse Rate [Right Pulse Oximeter] Respiratory Rate 18 Blood Pressure Blood Pressure [Le ft Arm] Blood Pressure [Ri ght Upper Arm] Pulse Oximetry Oxygen Delivery Me thod Labs Labs: Laboratory Results - last 24 hr 03/24/23 03/24/23 17:13 20:25 WBC 13.82 H RBC 4.42 Hgb 11.9 L Hct 35.4 MCV 80 MCH 27 MCHC 34 RDW Coeff of [place] 14.2 Plt Count 290 Neut % (Auto) 90.7 H Lymph % (Auto) 2.3 L [place] % (Auto) 5.6 Eos % (Auto) 0.0 Baso % (Auto) 0.1 Neut # (Auto) 12.50 H Lymph # (Auto) 0.30 L [place] # (Auto) 0.80 Eos # (Auto) 0.00 Baso # (Auto) 0.00 Sodium 132 L Potassium 4.1 Chloride 99 Carbon Dioxide 21 BUN 18 Creatinine 0.8 Estimated Creat Clear 39.59 Estimated GFR 76 Glucose 332 H Lactate 1.3 Calcium 9.2 Total Bilirubin 0.6 Direct Bilirubin 0.2 AST 21 ALT 22 Alkaline Phosphatase 110 C-Reactive Protein 41.1 H Total Protein 7.2 Albumin 3.8 TSH 2.900 Lab Acknowledgement Test Added
[2023-03-25] MEDS: PIPERACILLIN/TAZOBACTAM 3.375 GM in 0.9 % SODIUM CHLORIDE Mini-bag 100 ML IVPB ×3 (05:29→19:45)
[2023-03-25 06:43] LABS: Basophils Percent Auto 0.1 % (0.0-3.0); Eosinophils Percent Auto 0.2 % (0.0-7.0); Hematocrit 31.9 % (33.0-51.0); Hemoglobin* 10.7 gm/dL (12.0-16.0); Immature Granulocytes Pct Auto 1.5 %; Lymphocytes Percent Auto 3.6 % (20-44); Mean Corpuscular HGB Conc 34 gm/dL (32-36); Mean Corpuscular Hemoglobin 27 pg (26-34); Mean Corpuscular Volume 81 fL (80-100); Monocytes Percent Auto 10.6 % (0.0-11.0); Platelet Count* 280 K/uL (140-440); RDW Coefficient of Variation % 14.6 % (11.5-15.5); Red Blood Count 3.96 m/uL (4.00-5.20)
--- NOTE | 2023-03-25 06:50 | PC.NURSE ---
Shift note: Pt Arrived to the unit at 1910 with the complaints of constipation and leg for the past 1 week. No abdominal pain or tenderness noted. Alert and oriented, stable vital signs on arrival. Enema was given at 2300 per communication order. Pt complained of pain on ambulation and PRN medication given. A1, walker and GB. NPO status maintained for possible surgery. Pt has neither pass gas no had BM.
[2023-03-25 06:59] LABS: Slide Review Reflex No
[2023-03-25 07:02] LABS: Albumin* 3.1 g/dL (3.3-5.0); Chloride* 104 mmol/L (96-114)
[2023-03-25 07:03] LABS: Potassium* 3.9 mmol/L (3.6-5.1); Sodium* 134 mmol/L (135-149)
[2023-03-25 07:05] LABS: Bilirubin Total* 0.4 mg/dL (0.1-1.5); Creatinine* 0.9 mg/dL (0.5-1.5); Est. Creatinine Clearance* 39.59; Estimated Glomerular Filt Rate 66 ml/min
[2023-03-25 07:06] LABS: Alanine Aminotransferase* 17 U/L (4-35); Alkaline Phosphatase* 102 U/L (40-150); Aspartate Amino Transferase* 17 U/L (12-35); Blood Urea Nitrogen* 14 mg/dL (7-30); Calcium* 8.5 mg/dL (8.4-10.6); Carbon Dioxide* 23 mmol/L (20-32); Glucose* 273 mg/dL (60-115); Total Protein* 6.2 g/dL (6.0-8.3)
[2023-03-25] MEDS: LACTATED RINGERS 500 ML 500 ML IV (07:56)
[2023-03-25] MEDS: ACETAMINOPHEN 650 MG TABLET ER 1300 MG PO ×2 (08:04→20:27)
[2023-03-25] MEDS: OXYCODONE 5 MG TABLET PO ×3 (08:05→18:33)
[2023-03-25 08:15] LABS: C Reactive Protein* 42.2 mg/dL (0.5-1.0)
--- NOTE | 2023-03-25 09:09 | CRLHL7_ITS ---
For Patients: As a result of the 21st Century Cures Act, medical imaging exams and procedure reports are released immediately into your electronic medical record. You may view this report before your referring provider. If you have questions, please contact your health care provider. Indication: Bacteremia, lower extremity weakness Technique: Multiplanar, multisequence MRI of the cervical spine obtained without and with contrast. A total of 15 mL of Dotarem IV contrast was administered. Comparison: No relevant comparison studies available at this institution. Findings: Preserved cervical lordosis. Minor retrolisthesis C3 on C4. C4-7 ACDF changes, posterior transpedicular screw and mini fusion C4-T1. Minor anterolisthesis T2 on T3. No acute osseus abnormality. Unremarkable bone signal. Included posterior fossa structures are unremarkable. T2 hyperintense signal involving the dorsal C6-7 cord, right more than left, with associated volume loss compatible with myelomalacia. Equivocal bilateral T2 hyperintense cord signal at the C5 cord, possibly myelopathy/myelomalacia versus artifact. No suspicious findings in the prevertebral or paraspinal soft tissues. No concerning postcontrast enhancement identified. Incidentally noted cystic thyroid nodules, measuring 2.0 cm on the left, 1.2 cm on the right. C2-C3: No significant neuroforaminal or spinal canal stenosis. C3-C4: Retrolisthesis, uncovertebral arthropathy. Mild right, moderate left neural foraminal stenosis. No spinal canal stenosis. C4-C5: Postop changes, uncovertebral and facet arthropathy. Mild left neural foraminal narrowing. No significant right neural foraminal or spinal canal stenosis. C5-C6: Postop changes, uncovertebral and facet arthropathy. Mild left neural foraminal narrowing. No significant right neural foraminal or spinal canal stenosis. C6-C7: Postop changes, uncovertebral and facet arthropathy. No significant neural foraminal or spinal canal stenosis. C7-T1: Postop changes. No significant neural foraminal or spinal canal stenosis. Impression: 1. Postoperative changes of C4-7 anterior spinal fusion, and C4-T1 posterior spinal fusion. 2. No acute osseous abnormality. No suspicious fluid collection or bony edema to suggest discitis-osteomyelitis. 3. 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 Equivocal bilateral cord signal abnormality at C5, possibly myelopathy/myelomalacia versus artifact. 4. At C3-4, retrolisthesis, mild right/moderate left neural foraminal stenosis. 5. Additional mild left neural foraminal narrowing at C4-5 and C5-6. No spinal canal stenosis. 6. Cystic appearing thyroid nodules measuring up to 2.0 cm on the left. Thyroid ultrasound would better characterize characterization if clinically appropriate. Dictated by Alondra Cat MD @ 03/25/2023 1:47:48 PM (Electronically Signed)
--- NOTE | 2023-03-25 09:09 | CRLHL7_ITS ---
For Patients: As a result of the Century Cures Act, medical imaging exams and procedure reports are released immediately into your electronic medical record. You may view this report before your referring provider. If you have questions, please contact your health care provider. Indication: Bacteremia, lower extremity weakness Technique: Multiplanar, multisequence, MRI of the thoracic spine, obtained without and with contrast. A total of 15 mL of Dotarem IV contrast was administered. Comparison: Same-day MRI cervical spine, MRI lumbar spine 03/24/2023 Findings: Preserved thoracic kyphotic curve. Mild grade 1 anterolisthesis at T2-3, retrolisthesis and T10-11 and T11-12. Vertebral body heights are grossly maintained. No acute osseous abnormality. No suspicious bony edema. No pathologic intradiscal fluid signal or aggressive endplate erosions. Scattered spondylosis, including shallow central disc protrusion at T2-3, left central disc-osteophyte complex at T10-11, and right central disc-osteophyte complex at T11-T12. No evidence of significant neural foraminal or spinal canal stenosis. Partially visualized edematous enlargement and enhancement along the medial aspect of the included proximal right psoas muscle, corresponding to the abnormality noted on previous MRI lumbar spine. The visualized spinal cord appears normal in course, caliber, and intrinsic signal. Trace pleural effusions are noted bilaterally. IMPRESSION: 1. 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 2. No evidence of infectious process involving the thoracic spine. 3. Scattered spondylosis, including mild degenerative grade 1 spondylolisthesis, and shallow degenerative disc/endplate changes. No evidence of significant neural foraminal or spinal canal stenosis. Dictated by Alondra Cat MD @ 03/25/2023 2:00:23 PM (Electronically Signed)
[2023-03-25] MEDS: AMLODIPINE 5 MG TABLET 2.5 MG PO ×2 (09:16→20:28)
[2023-03-25] MEDS: LACTATED RINGERS 1000 ML 1,000 ML 125 ML IV ×2 (09:17→13:17)
--- NOTE | 2023-03-25 09:58 | CRLHL7_ITS ---
For Patients: As a result of the Century Cures Act, medical imaging exams and procedure reports are released immediately into your electronic medical record. You may view this report before your referring provider. If you have questions, please contact your health care provider. INDICATION: Bacteremia COMPARISON: CT 03/24/2023 TECHNIQUE: 2D hartley scale and color Doppler images were acquired of the pelvis using a transabdominal and transvaginal approach. FINDINGS: No uterine fibroid. Uterus measures 7.1 x 3.4 x 5.6 cm. Small cervical nabothian cysts noted. Endometrium is thickened measuring 1.9 cm with irregular margins. The ovaries are not visualized. There is a collection of fluid within the left adnexa including surrounding hyperechoic tissue measuring in total 5.0 x 2.3 x 3.3 cm. This appears to correlate with the CT findings. IMPRESSION: Thickened endometrium measuring 1.9 cm. Cystic area within the left adnexa with surrounding soft tissue echotexture measuring in total 5.0 cm, corresponding to the CT. This is indeterminate but may represent an infected fluid collection/abscess. Dictated by George Walls MD @ 03/25/2023 1:12:16 PM (Electronically Signed)
--- NOTE | 2023-03-25 11:35 | PM.GSCN ---
History of Present Illness Consult details Date Seen: 03/25/23 Consult date: 03/25/23 Narrative: 77-year-old female presented to emergency room with right leg and right flank pain and I was asked by Dr. Panchal to see her in consultation. Patient states that she has been having issues with constipation. Her last bowel movement was last . She was quite concerned about it because she has not had issues with bowel movements in the past. On Wednesday she presented to emergency room with constipation. She received an enema and was discharged home on MiraLax. At that time an abdominal CT was obtained that showed stool in the colon with no inflammation that would be concerning for diverticulitis, there was no evidence of a colonic mass. There is no evidence of inflammation near duodenum and appendix appeared normal. Patient went home and took MiraLax for 2 days with no results. She was passing gas yesterday. She denies any fevers. She states that her right leg continued to cause pain when she was walking. And she also started to notice weakness in the left leg. She states that on Wednesday when she was seen in the emergency room she was able to walk into the emergency room. However, on Wednesday when she came back, she had to use a wheelchair because her left leg was weak. Patient denies epidural injections, or any recent spine injections. Patient had a root canal ?done? at the beginning of February. This was done for a tooth with an abscess that improved with antibiotics a few months earlier. Upon her workup in the emergency room she was found to have an elevated WBC of 13 with CRP of 41. The CRP was increased from Wednesday, which was at 25. A lumbar MRI was obtained given patient's pain in the right leg and that showed 2 small slightly larger than 1 cm right psoas muscle abscesses. There was no inflammation noted near the adjacent colon, there was no evidence of perforation of the large intestine. Patient was then admitted to the hospital and was placed on broad-spectrum IV antibiotics. A repeat abdominal CT was obtained that showed slightly more distended colon and redundant colon with the transverse colon being in the pelvis. There was some stool in the colon but large amount of gas noted. Patient received 2 additional tap water enemas in the emergency room with no stool results. Review of Systems Narrative: As discussed above 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 Spends winter in [place]. 3 adult daughters. Nonsmoker, rare ETOH. Full Code. What is your current living situation?: I presently have a place to live Problems where you live: no known problems Problems where you live details: NA In the past 12 months, utilities in danger of being shut off: no In the past 12 mos, have been you worried that your food would run out before you had money to buy more?: never true In the past 12 mos, the food you bought just didn't last and you didn't have money to buy more?: never true Highest level of school completed/degree received: some college, no degree Smoking Status: Never smoker Do you use any of these nicotine containing products: None Second hand tobacco smoke exposure: No How often do you have a drink containing alcohol: monthly or less How often do you have six or more drinks on one occasion: Never AUDIT-C Alcohol total score: 1 Non-prescribed substance use: denies use Caffeine: Yes How often does anyone, including family, friends and others, physically hurt you: never How often does anyone, including family, friends and others, insult or talk down to you: never How often does anyone, including family, friends and others, threaten you with harm: never How often does anyone, including family, friends and others, scream or curse at you: never service: No Meds Home Medications and Allergies Home Medications Medication Instructions Recorded Confirmed Type amlodipine 2.5 mg tablet 2.5 mg PO BID 03/22/23 03/24/23 History metformin 500 mg tablet,extended 1,000 mg PO DAILY 03/22/23 03/24/23 History release 24 hr aspirin 81 mg tablet,delayed 81 mg PO DAILY 03/25/23 03/25/23 History release Allergies Allergy/AdvReac Type Severity Reaction Status Date / Time No Known Drug Allergies Allergy Verified 03/22/23 09:15 Exam Narrative: Exam Narrative: General appearance: Alert, cooperative, and in no distress Pulmonary: Chest symmetric, lungs clear bilaterally Cardiovascular Heart: Regular rate and rhythm, S1, S2, no murmurs/rubs/gallops Gastrointestinal Abdominal: distended and tympanitic to percussion, it is soft and not tender to palpation. There are no peritoneal signs. REctal: There are no masses palpated on the rectal exam and there is no stool palpated at the tip of my finger. Skin: Normal skin color, texture, and turgor. No rashes or lesions. Psychiatric: Alert, cooperative, normal affect. Const: Vital Signs, click to edit/add: Vital Signs - 24 hr 03/24/23 13:35 03/24/23 17:12 03/24/23 17:37 Temperature 98.1 F Pulse Rate 95 Pulse Rate [Left A pical] Pulse Rate [Left P ulse Oximeter] Pulse Rate [Right Pulse Oximeter] 89 Respiratory Rate 18 Blood Pressure 120/64 Blood Pressure [Le ft Arm] Blood Pressure [Ri ght Upper Arm] 122/73 Pulse Oximetry 99 96 95 Oxygen Delivery Me thod Room Air 03/24/23 17:38 03/24/23 18:01 03/24/23 18:02 Temperature Pulse Rate 94 98 91 Pulse Rate [Left A pical] Pulse Rate [Left P ulse Oximeter] Pulse Rate [Right Pulse Oximeter] Respiratory Rate Blood Pressure 114/67 Blood Pressure [Le ft Arm] Blood Pressure [Ri ght Upper Arm] Pulse Oximetry 96 94 93 Oxygen Delivery Me thod 03/24/23 18:30 03/24/23 18:31 03/24/23 19:32 Temperature 99 F Pulse Rate 89 88 Pulse Rate [Left A pical] Pulse Rate [Left P ulse Oximeter] 92 Pulse Rate [Right Pulse Oximeter] Respiratory Rate 18 Blood Pressure 112/65 Blood Pressure [Le ft Arm] 138/101 H Blood Pressure [Ri ght Upper Arm] Pulse Oximetry 96 94 96 Oxygen Delivery Me thod Room Air 03/24/23 23:00 03/25/23 03:00 03/25/23 07:30 Temperature 101.9 F H 99.3 F Pulse Rate Pulse Rate [Left A pical] 98 Pulse Rate [Left P ulse Oximeter] 91 97 96 Pulse Rate [Right Pulse Oximeter] Respiratory Rate 18 18 20 Blood Pressure Blood Pressure [Le ft Arm] 139/74 124/95 H Blood Pressure [Ri ght Upper Arm] Pulse Oximetry 91 96 Oxygen Delivery Me thod Room Air Room Air Results Labs Labs: Abnormal lab results 03/24/23 03/25/23 Range/Units 17:13 05:50 WBC 13.82 H 16.20 H (4.50-11.00) K/uL RBC 3.96 L (4.00-5.20) m/uL Hgb 11.9 L 10.7 L (12.0-16.0) gm/dL Hct 31.9 L (33.0-51.0) % Neut % (Auto) 90.7 H 84.0 H (42.0-72.0) % Lymph % (Auto) 2.3 L 3.6 L (20-44) % Neut # (Auto) 12.50 H 13.60 H (1.7-7.0) K/uL Lymph # (Auto) 0.30 L 0.60 L (0.90-2.90) K/uL [place] # (Auto) 1.70 H (0.00-0.90) K/UL Sodium 132 L 134 L (135-149) mmol/L Glucose 332 H 273 H (60-115) mg/dL C-Reactive Protein 41.1 H 42.2 H (0.5-1.0) mg/dL Albumin 3.1 L (3.3-5.0) g/dL Diabetes panel 03/24/23 03/25/23 Range/Units 17:13 05:50 Sodium 132 L 134 L (135-149) mmol/L Potassium 4.1 3.9 (3.6-5.1) mmol/L Chloride 99 104 (96-114) mmol/L Carbon Dioxide 21 23 (20-32) mmol/L BUN 18 14 (7-30) mg/dL Creatinine 0.8 0.9 (0.5-1.5) mg/dL Glucose 332 H 273 H (60-115) mg/dL Calcium 9.2 8.5 (8.4-10.6) mg/dL AST 21 17 (12-35) U/L ALT 22 17 (4-35) U/L Alkaline Phosphatase 110 102 (40-150) U/L Total Protein 7.2 6.2 (6.0-8.3) g/dL Albumin 3.8 3.1 L (3.3-5.0) g/dL Thyroid panel 03/24/23 Range/Units 17:13 TSH 2.900 (0.270-4.20) uIU/mL Calcium panel 03/24/23 03/25/23 Range/Units 17:13 05:50 Calcium 9.2 8.5 (8.4-10.6) mg/dL Albumin 3.8 3.1 L (3.3-5.0) g/dL Pituitary panel 03/24/23 03/25/23 Range/Units 17:13 05:50 Sodium 132 L 134 L (135-149) mmol/L Potassium 4.1 3.9 (3.6-5.1) mmol/L Chloride 99 104 (96-114) mmol/L Carbon Dioxide 21 23 (20-32) mmol/L BUN 18 14 (7-30) mg/dL Creatinine 0.8 0.9 (0.5-1.5) mg/dL Glucose 332 H 273 H (60-115) mg/dL Calcium 9.2 8.5 (8.4-10.6) mg/dL TSH 2.900 (0.270-4.20) uIU/mL Adrenal panel 03/24/23 03/25/23 Range/Units 17:13 05:50 Sodium 132 L 134 L (135-149) mmol/L Potassium 4.1 3.9 (3.6-5.1) mmol/L Chloride 99 104 (96-114) mmol/L Carbon Dioxide 21 23 (20-32) mmol/L BUN 18 14 (7-30) mg/dL Creatinine 0.8 0.9 (0.5-1.5) mg/dL Glucose 332 H 273 H (60-115) mg/dL Calcium 9.2 8.5 (8.4-10.6) mg/dL Total Bilirubin 0.6 0.4 (0.1-1.5) mg/dL AST 21 17 (12-35) U/L ALT 22 17 (4-35) U/L Alkaline Phosphatase 110 102 (40-150) U/L Total Protein 7.2 6.2 (6.0-8.3) g/dL Albumin 3.8 3.1 L (3.3-5.0) g/dL All other labs normal. Assessment and Plan Assessment and plan (1) Acute constipation: Problem comment: - vs atypical obstruction. Minimal pain, no n/v - General Surgery (Dr. Ladd) consulted - repeat CT scan with oral contrast ordered, results pending Status: Acute Plan 77-year-old female admitted to the hospital with 2 small psoas abscesses of unclear etiology and dilated colon and constipation that is concerning for pseudo-obstruction. I discussed with the patient and also discussed with the hospitalist that so far we do not have a source for those abscesses. Usually psoas abscesses are related to procedures near the spine or could be an extension of infection from vertebra. Patient's colon is redundant and majority of the lumen is occupied by gas. Patient had a colonoscopy in 2017 and had Cologuard from 2017 to the present day. It is less likely that she has a rectal mass that could be obstructing her especially given the fact that patient has other confounding symptoms such as leg pain on the right and a left leg weakness, which are usually not caused by colonic obstruction. In addition, she has no evidence of inflammation near her colon or small intestine making a colonic source of her those abscesses less likely. On rectal exam patient has no evidence of a mass. Today patient developed fevers and her blood cultures grew Gram-positive cocci. I recommended to explore osteomyelitis of her vertebrae as a cause of her sepsis. MRI of the thoracic and cervical spine could be done to investigate this further. Patient had previous history of cervical stenosis surgery and mentioned that she had ?nerve damage?. Cardiac echo can also help identify if patient has valve vegetations. At this time I would continue holding patient's NPO until further evaluation is complete.
[2023-03-25] MEDS: IBUPROFEN 400 MG TABLET PO (13:16)
--- NOTE | 2023-03-25 13:33 | PC.NURSE ---
Eval by Dr. Maldonado, pt remains NPO. Oral moisturizer and swabs provided. Repositioned 3 times in 10 minutes by staff, multiple pillow adjustments, warm blanket provided. Pt restless, anxious and irritable at initial assessment. New order for LR @500cc/ over one hour initiated and remainder of bag infused at 125cc/hr. Pain 8 out 10 and pt received PO oxycodone 5mg and tylenol w/sip of water. Recheck of pain was 3 out of 10 , pt smiling, less anxious and visiting with her dtr Shital. Taken to MRI for scans and US completed when she was in diagnostic imaging. Pt returned to floor from imaging and IVF resumed at 125 cc/hr. Echocardiogram completed at bedside, PT eval with Mc. present at bedside. IV Zosyn infusing per protocol. BG 266 am & 263 pm, both values received 3 units of SS Novolog insulin. Pt rated her pain 5 out of 10 after walking with therapy. Motrin 400mg and oxycodone 5 mg provided for increased pain. Pt up to recliner visiting family @ this time. Report will be provided to oncoming shift RN.
--- NOTE | 2023-03-25 14:51 | P.IMPN_ITS ---
Progress Note: A&P Assessment and plan (1) Bacteremia: Problem details: Vancomycin and Zosyn pending cultures sensitivities and identification of source. Status: Acute (2) Abscess, psoas: Problem details: - Zosyn and Vancomycin initiated in ED (03/24), will continue these - General Surgery consulting. Patient NPO at midnight - Query systemic disease (recent dental work, MCP erythema/edema); blood cultures pending, TTE ordered Status: Acute (3) Acute constipation: Problem details: - vs atypical obstruction. Minimal pain, no n/v - General Surgery (Dr. Ladd) consulted - repeat CT scan with oral contrast ordered, results pending Status: Acute (4) Non-insulin dependent diabetes mellitus: Problem details: - last A1C 8.0 01/2023 - accuchecks, SSI Status: Acute (5) Essential hypertension: Problem details: - on Amlodipine 2.5mg BID as an outpatient, will continue this Status: Acute Plan Patient admitted to the hospital for evaluation and treatment of bacteremia. MRI of the cervical and thoracic spines show no obvious infection outside of the iliopsoas findings. Echo cardiogram and ultrasound of the pelvis are pending. Time Spent With Patient Total time spent: Total time spent today is 60 minutes, 40 minutes in coordination of care discussing with patient and other providers and her patient's daughter ongoing evaluation and management of bacteremia and psoas abscess Subjective Date Seen: 03/25/23 Interval history: Ana Edwards is a 77 year old female who presented to the emergency room with persistent constipation. It has been at least 6 days since her most recent bowel movement.? She was seen in the emergency room 2 days ago and started on MiraLax without relief.? No history of constipation. She has not had any nausea or vomiting; no urinary symptoms. Over the past two days, she has also noted pain in her right buttock that can radiate inferiorly or superiorly, depending on positioning.? Pain has been so severe that she's had to use a walker to ambulate at home.? She has had pain relief with Advil and Tylenol; notes that she feels poorly when these medications wear off.? She is unsure if she has had any objective fevers. She has had no trauma. She has not had any other symptoms of illness. She had dental work done, root canal, at the beginning of February. Previous history of cervical spine surgery with some lower extremity neuropathic complications in about 2018 at [place] Since she has not felt well, she has been holding her metformin and aspirin; still has been taking her amlodipine. She is not aware of a fever prior to hospitalization but had a fever during the night. 4 of 4 blood cultures turn positive early this morning with Gram-positive cocci in chains. She reports feeling uncomfortable but is unable to identify a location of pain and is unsuccessfully trying to reposition herself in bed to get comfortable. Exam Narrative: Exam Narrative: She appears alert and in mild distress. Quite restless. She is oriented to her circumstances. Eyes are normal. Mucous membranes are very dry. No mucosal abnormalities. Neck is supple without mass or adenopathy. Respirations are clear to auscultation without wheezing rales or rhonchi. Cardiovascular: S1, S2, regular rate and rhythm. Abdomen: Bowel sounds active. Abdomen is soft without tenderness or mass. External genitalia normal. She moves her upper extremities well without pain or weakness. She is unable to lift her right leg off the bed due to pain in the right groin and thigh. She is weak but is able to lift her left leg off the bed. Bilaterally feet and ankles move well. Intact pedal pulses. No rash. Const: Vital Signs, click to edit/add: Vital Signs - 24 hr 03/24/23 17:12 03/24/23 17:37 03/24/23 17:38 Temperature Pulse Rate 95 94 Pulse Rate [Left A pical] Pulse Rate [Left P ulse Oximeter] Respiratory Rate Blood Pressure 120/64 Blood Pressure [Le ft Arm] Pulse Oximetry 96 95 [facility] 18:01 03/24/23 18:02 03/24/23 18:30 Temperature Pulse Rate 98 91 89 Pulse Rate [Left A pical] Pulse Rate [Left P ulse Oximeter] Respiratory Rate Blood Pressure 114/67 Blood Pressure [Le ft Arm] Pulse Oximetry 94 93 96 [facility] 03/24/23 18:31 03/24/23 19:32 03/24/23 23:00 Temperature 99 F Pulse Rate 88 Pulse Rate [Left A pical] Pulse Rate [Left P ulse Oximeter] 92 91 Respiratory Rate 18 18 Blood Pressure 112/65 Blood Pressure [Le ft Arm] 138/101 H Pulse Oximetry 94 96 Oxygen Delivery Me thod Room Air 03/25/23 03:00 03/25/23 07:30 03/25/23 12:30 Temperature 101.9 F H 99.3 F 97.6 F Pulse Rate Pulse Rate [Left A pical] 98 89 Pulse Rate [Left P ulse Oximeter] 97 96 89 Respiratory Rate 18 20 18 Blood Pressure Blood Pressure [Le ft Arm] 139/74 124/95 H 139/72 Pulse Oximetry 91 96 96 Oxygen Delivery Me thod Room Air Room Air Room Air Documenting provider has reviewed patient's vital signs: yes Labs Labs: Laboratory Results - last 24 hr 03/24/23 03/24/23 03/25/23 17:13 20:25 05:50 WBC 13.82 H 16.20 H RBC 4.42 3.96 L Hgb 11.9 L 10.7 L Hct 35.4 31.9 L MCV 80 81 MCH 27 27 MCHC 34 34 RDW Coeff of [place] 14.2 14.6 Plt Count 290 280 Neut % (Auto) 90.7 H 84.0 H Lymph % (Auto) 2.3 L 3.6 L [place] % (Auto) 5.6 10.6 Eos % (Auto) 0.0 0.2 Baso % (Auto) 0.1 0.1 Neut # (Auto) 12.50 H 13.60 H Lymph # (Auto) 0.30 L 0.60 L [place] # (Auto) 0.80 1.70 H Eos # (Auto) 0.00 0.00 Baso # (Auto) 0.00 0.00 Sodium 132 L 134 L Potassium 4.1 3.9 Chloride 99 104 Carbon Dioxide 21 23 BUN 18 14 Creatinine 0.8 0.9 Estimated Creat Clear 39.59 39.59 Estimated GFR 76 66 Glucose 332 H 273 H Lactate 1.3 Calcium 9.2 8.5 Total Bilirubin 0.6 0.4 Direct Bilirubin 0.2 AST 21 17 ALT 22 17 Alkaline Phosphatase 110 102 C-Reactive Protein 41.1 H 42.2 H Total Protein 7.2 6.2 Albumin 3.8 3.1 L TSH 2.900 Lab Acknowledgement Test Added Imaging MR - Other: Radiologist's impression: Indication: Back pain, stool retention, radiculopathy Technique: Multiplanar, multisequence, MRI of the lumbar spine, obtained without contrast. Comparison: CT abdomen pelvis 03/22/2023 Findings: Preserved lumbar lordosis. Grade 1 anterolisthesis at L4-5. No evidence of acute osseous abnormality. The conus medullaris terminates at approximately L1-2. There is asymmetric intramuscular edema throughout the right psoas muscle, containing a couple of cystic appearing collections measuring 9 x 11 mm at the superior L3 level (series 7 image 19), and 9 x 13 mm at the L3-4 level (series 7 image 24). There are right lateral projecting disc-osteophyte complexes at the L2-3 and L3-4 levels. However no suspicious intradiscal fluid signal or aggressive osseous erosions are identified. T12-L1, L1-L2: No significant neural foraminal or spinal canal stenosis. L2-L3: Disc degeneration, mild diffuse disc bulge, right lateral eccentric disc-osteophyte complex, mild facet arthropathy. No significant neural foraminal stenosis. Mild spinal canal narrowing. L3-L4: Mild diffuse disc bulge with right lateral eccentric disc-osteophyte complex, mild facet arthropathy. Mild bilateral neural foraminal narrowing. Mild spinal canal narrowing. L4-L5: Anterolisthesis, disc unroofing/diffuse bulge, moderate facet arthropathy. Moderate bilateral neural foraminal stenosis. Moderate spinal canal stenosis. L5-S1: Mild facet arthropathy. Mild left neuroforaminal narrowing. No significant right neural foraminal or spinal canal stenosis. Impression: 1. Intramuscular edema throughout the proximal right psoas, with a couple of cystic-appearing intermuscular collections measuring slightly greater than 1 cm at the L3-L4 levels, suspicious for intramuscular abscesses. Clinical correlation advised. 2. No suspicious intradiscal fluid signal or aggressive osseous erosions at the L2-3 or L3-4 levels to suggest discitis-osteomyelitis at this time. 3. At L2-3, mild spinal canal narrowing. 4. At L3-4, mild bilateral neural foraminal narrowing, and mild spinal canal narrowing. 5. At L4-5, moderate bilateral neural foraminal stenosis, and moderate spinal canal stenosis. CT scan - abdomen: Radiologist's impression: INDICATION: Right-sided abdominal pain, constipation TECHNIQUE: CT abdomen and pelvis acquired with oral contrast and 69 cc Isovue 370 IV contrast. COMPARISON: March 22, 2023 FINDINGS: Lower chest: Unremarkable.? Liver: Simple 1.5 cm cyst in the liver. Spleen: Calcified granulomata. Pancreas: Unremarkable.? Gallbladder and bile ducts: Unremarkable.? Adrenal glands: Unremarkable.? Kidneys: Unremarkable.? GI tract: Oral contrast reaches the distal small bowel. Large amount of stool in the colon is unchanged. Appendix is normal.? Vascular structures: Unremarkable.? Lymph nodes: Unremarkable.? Miscellaneous: There is a new rim enhancing 1.0 by 3.2 x 7.8 cm hypodensity within right psoas muscle. This is best seen on image 63 series 2 and image 74 series 4. The right psoas muscle appears mildly enlarged compared to the left. There is no retroperitoneal fat stranding. No free air or significant free fluid.? Pelvic Organs: Abnormally thickened endometrium measuring 8 mm in thickness. 4.0 x 2.4 cm rim enhancing fluid collection in the left pelvis. The measures 8 Hounsfield units in density. Bones: Unremarkable for age.? IMPRESSION: Large amount of stool in the colon is unchanged. New rim enhanced seen fluid collection in the right psoas muscle. Mild enlargement of the right psoas muscle compared to the left. Findings could represent hematoma or abscess. Fluid collection in the left pelvis. This could represent an abnormal ovarian cyst or abscess. There is also abnormal thickening of the endometrium. Consider pelvic ultrasound for further evaluation of these findings.
--- NOTE | 2023-03-25 18:49 | PC.NURSE ---
End of Shift: Pt AO throughout shift, reports pain between 0-4/10 in right hip. Well-controlled with movement, ambulation, and oxycodone. Diet advanced from NPO to clear liquids until midnight, NPO will resume. Pt ambulates with walker, gait belt, and SBA.
[2023-03-26] MEDS: PIPERACILLIN/TAZOBACTAM 3.375 GM in 0.9 % SODIUM CHLORIDE Mini-bag 100 ML IVPB ×4 (01:08→20:39)
[2023-03-26] MEDS: LACTATED RINGERS 1000 ML 1,000 ML 125 ML IV ×2 (01:08→11:37)
[2023-03-26 02:50] VITALS: BP 132/62; PULSE 82; RESP 16; TEMP 36.4; O2SAT 96
--- NOTE | 2023-03-26 04:20 | PC.NURSE ---
Pt rested comfortably this night. Up SBA with walker and walking halls. Pain controlled. No BM. NPO as of 0000. VS unremarkable. Oriented x3.
[2023-03-26 05:33] VITALS: TEMP 36.4
[2023-03-26] MEDS: ACETAMINOPHEN 650 MG TABLET ER 1300 MG PO ×2 (05:33→16:13)
[2023-03-26 06:52] LABS: Basophils Percent Auto 0.3 % (0.0-3.0); Eosinophils Percent Auto 1.2 % (0.0-7.0); Hematocrit 33.5 % (33.0-51.0); Hemoglobin* 11.1 gm/dL (12.0-16.0); Lymphocytes Percent Auto 5.9 % (20-44); Mean Corpuscular HGB Conc 33 gm/dL (32-36); Mean Corpuscular Hemoglobin 27 pg (26-34); Mean Corpuscular Volume 81 fL (80-100); Monocytes Percent Auto 8.7 % (0.0-11.0); Neutrophils Percent Auto 82.9 % (42.0-72.0); Platelet Count* 305 K/uL (140-440); RDW Coefficient of Variation % 14.8 % (11.5-15.5); Red Blood Count 4.13 m/uL (4.00-5.20); White Blood Count* 14.43 K/uL (4.50-11.00)
[2023-03-26 06:55] LABS: Slide Review Reflex No
[2023-03-26 07:09] LABS: Chloride* 105 mmol/L (96-114); Potassium* 3.5 mmol/L (3.6-5.1); Sodium* 136 mmol/L (135-149)
[2023-03-26 07:12] LABS: Creatinine* 0.8 mg/dL (0.5-1.5); Est. Creatinine Clearance* 39.59; Estimated Glomerular Filt Rate 76 ml/min
[2023-03-26 07:13] LABS: Blood Urea Nitrogen* 15 mg/dL (7-30); Calcium* 8.6 mg/dL (8.4-10.6); Carbon Dioxide* 20 mmol/L (20-32); Glucose* 198 mg/dL (60-115)
[2023-03-26 07:54] LABS: C Reactive Protein* 39.6 mg/dL (0.5-1.0)
--- NOTE | 2023-03-26 08:57 | CRLHL7_ITS ---
For Patients: As a result of the Century Cures Act, medical imaging exams and procedure reports are released immediately into your electronic medical record. You may view this report before your referring provider. If you have questions, please contact your health care provider. Technique: Single contrast water soluble enema performed. Fluoroscopy time 2 minutes 1 second. Indication: Constipation, rule out stricture Comparison: CT abdomen and pelvis 03/24/2023 Findings: There is no obstruction to the flow of contrast. Residual stool noted. Mild diverticulosis. No fistula or extravasation. Impression: No stricture or mass. Dictated by George Walls MD @ 03/26/2023 11:59:33 AM (Electronically Signed)
[2023-03-26] MEDS: AMLODIPINE 5 MG TABLET 2.5 MG PO ×2 (09:27→21:29)
[2023-03-26] MEDS: IBUPROFEN 400 MG TABLET PO (09:27)
[2023-03-26] MEDS: OXYCODONE 5 MG TABLET PO ×2 (09:28→21:28)
[2023-03-26] MEDS: SODIUM CHLORIDE 0.9 % (FLUSH) 10 ML SYRINGE 5 ML IVF ×2 (10:15→21:31)
--- NOTE | 2023-03-26 10:23 | P.GYNCN_ITS ---
SHOP REPAIRER - CN: HPI Data of Consult Time Seen by Provider: : Date Seen: 03/26/23 Patient: Gloria Patient Consult date: 03/26/23 Requesting Physician: Jesús Maldonado MD Primary Care Provider: Conchita Hussein MD Consult Narrative Reason for consult: pelvic mass Narrative: Ana Edwards is a 77 year old female who presented to the emergency department complaining of constipation and right buttock pain. She was admitted for bacteremia of unknown source. I was asked to see her following imaging studies, specifically a CT scan of the abdomen and pelvis and a pelvic ultrasound, that demonstrated an irregular thickened endometrial lining of 1.9 cm and an ill-defined hyperechoic tissue mass with fluid collection measuring 5 x 2.3 x 3.3 cm. The patient tells me that it has been 7 days since she has been able to have a bowel movement. She has passed a little bit of gas both on the day of admission and yesterday. She was seen 2 days prior to her admission in the emergency department as well, and started on MiraLax without relief. She denies nausea or vomiting. She does have some decreased appetite. She has been NPO since admission and complains of feeling thirsty. She has no prior history of chronic constipation. Patient denies urinary symptoms such as urinary urgency or frequency, or dysuria. Over the past few days, she has also noted pain in her right buttock that can radiate inferiorly or superiorly, depending on positioning.? Pain has been so severe that she's had to use a walker to ambulate at home.? She has had pain relief with Advil and Tylenol; notes that she feels poorly when these medications wear off.? She is unsure if she has had any objective fevers.? She has had no trauma.? She has not had any other symptoms of illness.? She also states that she has had some intermittent right mid abdominal discomfort that feels like muscle cramp for some time. She had dental work done, root canal, at the beginning of February. She had developed an abscess, and did not pursue treatment immediately, as she was soon to be leaving [place] to come back to [place]. Prior to the root canal, she was prescribed an oral antibiotic. She also describes a severe infection that required antibiotic therapy in August 2022. Previous history of cervical spine surgery with some lower extremity neuropathic complications in about 2017 at [place]. She is not aware of a fever prior to hospitalization but had a fever during the night following admission. 4 of 4 blood cultures turn positive early yesterday morning with Gram-positive cocci in chains. Identification and sensitivities are pending. GYNECOLOGIC HISTORY: Cis gender female. Menopausal. Has never used hormone replacement therapy. No history of abnormal Pap smears, uterine fibroids, or endometriosis. No history of pelvic inflammatory disease. Not currently sexually active. Patient denies vaginal bleeding or spotting, unusual vaginal discharge, or pelvic pain. OBSTETRIC HISTORY: . History of 3 term vaginal deliveries and 1 early miscarriage, all uncomplicated. 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 Spends winter in [place]. 3 adult daughters. Nonsmoker, rare ETOH. Full Code. What is your current living situation?: I presently have a place to live Problems where you live: no known problems Problems where you live details: NA In the past 12 months, utilities in danger of being shut off: no In the past 12 mos, have been you worried that your food would run out before you had money to buy more?: never true In the past 12 mos, the food you bought just didn't last and you didn't have money to buy more?: never true Highest level of school completed/degree received: some college, no degree Smoking Status: Never smoker Do you use any of these nicotine containing products: None Second hand tobacco smoke exposure: No How often do you have a drink containing alcohol: monthly or less How often do you have six or more drinks on one occasion: Never AUDIT-C Alcohol total score: 1 Non-prescribed substance use: denies use Caffeine: Yes How often does anyone, including family, friends and others, physically hurt you : never How often does anyone, including family, friends and others, insult or talk down to you: never How often does anyone, including family, friends and others, threaten you with harm: never How often does anyone, including family, friends and others, scream or curse at you: never service: No Meds Home Medications and Allergies Home Medications Medication Instructions Recorded Confirmed Type amlodipine 2.5 mg tablet 2.5 mg PO BID 03/22/23 03/24/23 History metformin 500 mg tablet,extended 1,000 mg PO DAILY 03/22/23 03/24/23 History release 24 hr aspirin 81 mg tablet,delayed 81 mg PO DAILY 03/25/23 03/25/23 History release Allergies Allergy/AdvReac Type Severity Reaction Status Date / Time No Known Drug Allergies Allergy Verified 03/22/23 09:15 SHOP REPAIRER - Exam Physical Exam: Vital signs: Temp Pulse Resp BP Pulse Ox O2 Del Method 97.6 F 82 16 132/62 96 Room Air 03/26/23 05:33 03/26/23 02:50 03/26/23 02:50 03/26/23 02:50 03/26/23 02:50 03/26/23 02:50 Constitutional: Constitutional: no acute distress, average body habitus and cooperative SHOP REPAIRER - Results Labs Labs: Short CBC 03/26/23 Range/Units 06:01 WBC 14.43 H (4.50-11.00) K/uL Hgb 11.1 L (12.0-16.0) gm/dL Hct 33.5 (33.0-51.0) % Plt Count 305 (140-440) K/uL BMP 03/26/23 06:01 Sodium 136 Potassium 3.5 L Chloride 105 Carbon Dioxide 20 BUN 15 Creatinine 0.8 Glucose 198 H Calcium 8.6 Imaging US - pelvis: Attestation: I have reviewed the pertinent imaging results. My impression: Thickened, irregular endometrial lining measuring 1.9 cm. Normal sized uterus. Nonvisualized ovaries. Ill-defined cystic and soft tissue mass within the left adnexal region measuring 5 x 2.3 x 3.3 cm without increased blood flow. Ovarian tissue not identified. Ovarian mass or TOA cannot be excluded, but differential diagnosis also could include degenerating fibroid or sigmoid diverticulitis. Radiologist's impression: Thickened endometrium measuring 1.9 cm. Cystic area within the left adnexa with surrounding soft tissue echotexture measuring in total 5.0 cm, corresponding to the CT. This is indeterminate but may represent an infected fluid collection/abscess. CT Chest/Ab/Pelvis: Attestation: I have reviewed the pertinent imaging results. My impression: Large amount of stool in the colon. Fluid collection in left pelvis, difficult to determine origin. Ovaries not identified. Thickened endometrial lining. Radiologist's impression: Large amount of stool in the colon is unchanged. New rim enhanced seen fluid collection in the right psoas muscle. Mild enlargement of the right psoas muscle compared to the left. Findings could represent hematoma or abscess. Fluid collection in the left pelvis. This could represent an abnormal ovarian cyst or abscess. There is also abnormal thickening of the endometrium. Consider pelvic ultrasound for further evaluation of these findings. Assessment and Plan Assessment and plan (1) Bacteremia: Problem comment: Vancomycin and Zosyn pending cultures sensitivities and identification of source. Status: Acute (2) Endometrial thickening on ultrasound: Status: Acute (3) Left pelvic adnexal fluid collection: Status: Acute Plan 1. I reviewed the results the pelvic ultrasound and the pelvic concerns from the CT scan with the patient. Certainly, the endometrial lining thickness is greater than we would expect to see in a postmenopausal woman. Differential diagnosis would include endometrial polyp(s), endometrial hyperplasia, or endometrial malignancy. I am reassured that she has not had any vaginal bleeding, which often occurs in the setting of endometrial hyperplasia or early endometrial cancer. I do not believe that this is related to her reason for admission. Certainly, endometrial biopsy is indicated, and could be done as an outpatient once the acute phase of her illness is resolved. 2. It is difficult to know with certainty the source of the left adnexal fluid collections/soft tissue mass. It does not have a typical appearance of an o varian malignancy or tubo-ovarian abscess. Given the location, the differential diagnosis could include diverticulitis. I understand that a further imaging study is pending, that will look more closely at the bowels for evidence of obstruction. She will remain NPO until it is known whether not she will need surgical exploration. If the further imaging studies rule out a bowel source, and if there is any concern for possible gynecologic malignancy, she would need referral to a gynecologic oncologist for further evaluation and treatment at a tertiary medical center. 3. Clinically, the patient's condition is improving. She understands that definitive diagnosis may not be made until the bacterial identification from the positive blood cultures is made.
[2023-03-26 11:00] VITALS: BP 108/74; PULSE 73; RESP 18; TEMP 36.8; O2SAT 93
--- NOTE | 2023-03-26 12:23 | REH.OT ---
OT: Pt out for imaging x 2 today, will reschedule eval.
--- NOTE | 2023-03-26 14:32 | PM.IMPN1 ---
Progress Note: A&P Assessment and plan (1) Bacteremia: Problem details: Vancomycin and Zosyn pending cultures sensitivities and identification of source. Currently showing alpha hemolytic strep. Considerations include strep pneumonia and strep viridans, the latter may have come from her root canal and dental abscess. Depending on findings on culture and her clinical course may need a transesophageal echo and Infectious Disease consult. This could be done as outpatient or inpatient depending on her clinical course. Status: Acute (2) Endometrial thickening on ultrasound: Problem details: Outpatient follow-up. Not currently bleeding. Status: Acute (3) Left pelvic adnexal fluid collection: Problem details: Outpatient follow-up. Not likely related to current hospitalization. Status: Acute (4) Abscess, psoas: Problem details: - Zosyn and Vancomycin initiated in ED (03/24), will continue these - General Surgery consulting. I am concerned a that this is metastatic infection from another source of bacteremia such as endocarditis and or dental infection - Query systemic disease (recent dental work, MCP erythema/edema); blood cultures pending, TTE ordered Status: Acute (5) Acute constipation: Problem details: She has a long tortuous dilated colon suggested that this may be a more chronic problem. She is now had diarrhea following her Gastrografin enema. Will institute senna and MiraLax treatment to prevent recurrent constipation. Continue to monitor. Status: Acute (6) Non-insulin dependent diabetes mellitus: Problem details: - last A1C 8.0 01/2023 - accuchecks, SSI Status: Acute (7) Essential hypertension: Problem details: - on Amlodipine 2.5mg BID as an outpatient, will continue this Status: Acute Plan Continue in hospital pending clearing of blood cultures and identification of appropriate treatment and plan of care for ongoing evaluation and management. Total time spent today is 45 minutes, 30 minutes in coordination of care discussing with patient and family ongoing evaluation management. I explained to the patient family that I suspect her current problems are related to infectious metastases with her bacteremia and we should continue to look for the source as well as other possible complications including endocarditis. This may be able to be continued as an outpatient if she is clinically doing well and appropriate treatment can be arranged Subjective Date Seen: 03/26/23 Interval history: Ana Edwards is a 77 year old female who presented to the emergency room with persistent constipation. It has been at least 6 days since her most recent bowel movement.? She was seen in the emergency room 2 days ago and started on MiraLax without relief.? No history of constipation. She has not had any nausea or vomiting; no urinary symptoms. Over the past two days, she has also noted pain in her right buttock that can radiate inferiorly or superiorly, depending on positioning.? Pain has been so severe that she's had to use a walker to ambulate at home.? She has had pain relief with Advil and Tylenol; notes that she feels poorly when these medications wear off.? She is unsure if she has had any objective fevers. She has had no trauma. She has not had any other symptoms of illness. She had dental work done, root canal, at the beginning of February, around the end of the week of February. Previous history of cervical spine surgery with some lower extremity neuropathic complications in about 2017 at [place] Since she has not felt well, she has been holding her metformin and aspirin; still has been taking her amlodipine. She is not aware of a fever prior to hospitalization but had a fever during the night. 4 of 4 blood cultures turn positive early on the morning of admission with Gram-positive cocci in chains. Preliminary test shows alpha hemolytic strep. Patient underwent Gastrografin enema today. This showed no obstruction or other colon abnormalities. Following that she has had moderate diarrhea. She reports feeling very well and is anxious to eat. Specifically notes that her walking and pain with walking is much better. Still using a walker. Exam Narrative: Exam Narrative: She is alert and appears in no distress. Mood and affect are bright. Oropharynx shows evidence where she had her root canal but no obvious inflammation or erythema or drainage in the gingiva. Neck is supple without mass or adenopathy. Respirations are clear to auscultation. Cardiovascular: S1, S2, without murmur gallop or rub. Mild swelling of her 2nd MCP on the right hand which developed this week. Abdomen is soft without tenderness. Lower extremities are normal. She is barely able to lift her right leg off of the bed and does a little better with her left leg. Bilateral knee and ankle flexion extension is normal. Const: Vital Signs, click to edit/add: Vital Signs - 24 hr 03/25/23 15:00 03/25/23 15:00 03/25/23 19:06 Temperature 99.3 F 99 F Pulse Rate [Left A pical] 102 H Pulse Rate [Left P ulse Oximeter] 102 H 70 Respiratory Rate 18 18 16 Blood Pressure [Le ft Arm] 124/95 H 113/81 Pulse Oximetry 96 98 Oxygen Delivery Me thod Room Air Room Air 03/25/23 20:27 03/25/23 22:25 03/25/23 22:26 Temperature 99 F 98.6 F Pulse Rate [Left A pical] 102 H Pulse Rate [Left P ulse Oximeter] 92 92 Respiratory Rate 16 16 Blood Pressure [Le ft Arm] 120/88 Pulse Oximetry 98 Oxygen Delivery Me thod Room Air 03/26/23 02:50 03/26/23 05:33 Temperature 97.6 F 97.6 F Pulse Rate [Left A pical] Pulse Rate [Left P ulse Oximeter] 82 Respiratory Rate 16 Blood Pressure [Le ft Arm] 132/62 Pulse Oximetry 96 Oxygen Delivery Me thod Room Air Documenting provider has reviewed patient's vital signs: yes Labs Labs: Laboratory Results - last 24 hr 03/26/23 06:01 WBC 14.43 H RBC 4.13 Hgb 11.1 L Hct 33.5 MCV 81 MCH 27 MCHC 33 RDW Coeff of [place] 14.8 Plt Count 305 Neut % (Auto) 82.9 H Lymph % (Auto) 5.9 L [place] % (Auto) 8.7 Eos % (Auto) 1.2 Baso % (Auto) 0.3 Neut # (Auto) 12.00 H Lymph # (Auto) 0.90 [place] # (Auto) 1.30 H Eos # (Auto) 0.20 Baso # (Auto) 0.00 Sodium 136 Potassium 3.5 L Chloride 105 Carbon Dioxide 20 BUN 15 Creatinine 0.8 Estimated Creat Clear 39.59 Estimated GFR 76 Glucose 198 H Calcium 8.6 C-Reactive Protein 39.6 H
--- NOTE | 2023-03-26 15:30 | PC.NURSE ---
Pt's pain managed with po motrin 400 mg and oxycodone 5 mg with am med pass. Pt taken to diagnositic imaging via w/c for gastrograffin enema. Pt able to have 2 XL soft loose stools after return from procedure. Pericares provided. Pt's maintenance IVF to SL. Please see eMar for BG levels and SS insulin provided. Pt walked in hallway with PT and is moving well w/o discomfort. Advanced to regular diet. Continue treatment for bacteremia. New order for UA in process, report to Sylvia CALLE for evening shift.
[2023-03-26 16:00] VITALS: BP 121/71; PULSE 88; RESP 18; TEMP 37.2; O2SAT 97
--- NOTE | 2023-03-26 19:15 | P.GSPN_ITS ---
Subjective Subjective Date Seen: 03/26/23 Interval history: Ana was seen this afternoon after her Gastrografin enema. This did not show any obstruction. This resulted in a large bowel movement. Her abdominal distention has significantly improved. Overall she feels improved. She still has lower extremity weakness, however this is better. No nausea. She ate lunch without any difficulty Exam Narrative: Exam Narrative: General: No acute distress Abdomen: Soft. Nontender. Nondistended. Const: Vital Signs, click to edit/add: Vital Signs - 24 hr 03/25/23 20:27 03/25/23 22:25 03/25/23 22:26 Temperature 99 F 98.6 F Pulse Rate [Left A pical] 102 H Pulse Rate [Left P ulse Oximeter] 92 92 Respiratory Rate 16 16 Blood Pressure [Le ft Arm] 120/88 Blood Pressure [Ri ght Arm] Pulse Oximetry 98 Oxygen Delivery Me thod Room Air 03/26/23 02:50 03/26/23 05:33 03/26/23 11:00 Temperature 97.6 F 97.6 F 98.3 F Pulse Rate [Left A pical] 73 Pulse Rate [Left P ulse Oximeter] 82 Respiratory Rate 16 18 Blood Pressure [Le ft Arm] 132/62 108/74 Blood Pressure [Ri ght Arm] Pulse Oximetry 96 93 Oxygen Delivery Me thod Room Air Room Air 03/26/23 16:00 03/26/23 16:00 Temperature 99.0 F Pulse Rate [Left A pical] Pulse Rate [Left P ulse Oximeter] 88 88 Respiratory Rate 18 18 Blood Pressure [Le ft Arm] Blood Pressure [Ri ght Arm] 121/71 Pulse Oximetry 97 Oxygen Delivery Me thod Room Air Labs/Imaging Labs Labs: White blood cell count is 14 from 16 CRP is 39 from 43. Imaging Imaging: Gastrografin enema images reviewed and report reviewed. Technique: Single contrast water soluble enema performed. Fluoroscopy time 2 minutes 1 second. Indication: Constipation, rule out stricture Comparison: CT abdomen and pelvis 03/24/2023 Findings: There is no obstruction to the flow of contrast. Residual stool noted. Mild diverticulosis. No fistula or extravasation. Impression: No stricture or mass. Dictated by George Walls MD @ 03/26/2023 11:59:33 AM Progress Note: A&P Assessment and plan (1) Abscess, psoas: Problem details: - Zosyn and Vancomycin initiated in ED (03/24), will continue these - General Surgery consulting. I am concerned a that this is metastatic infection from another source of bacteremia such as endocarditis and or dental infection - Query systemic disease (recent dental work, MCP erythema/edema); blood cultures pending, TTE ordered Status: Acute (2) Non-insulin dependent diabetes mellitus: Problem details: - last A1C 8.0 01/2023 - accuchecks, SSI Status: Acute (3) Bacteremia: Problem details: Vancomycin and Zosyn pending cultures sensitivities and identification of s ource. Currently showing alpha hemolytic strep. Considerations include strep pneumonia and strep viridans, the latter may have come from her root canal and dental abscess. Depending on findings on culture and her clinical course may need a transesophageal echo and Infectious Disease consult. This could be done as outpatient or inpatient depending on her clinical course. Status: Acute Plan The patient is a 77-year-old female with a psoas abscess of unclear etiology. She appears to have strep growing from blood cultures. Source seems most likely at a dental abscess at the beginning of last month. No sign for any sort of bowel source. -Gastrografin enema was performed today to rule out distal obstruction given her colonic dilatation and constipation. This did not show an obstruction and also resolved her constipation. -recommend UA. -Gyne saw patient and did not feel that adnexal cyst was necessarily infectious. -patient seems to be improving overall. Continue antibiotics. -general surgery will sign off. Please call if patient condition changes.
[2023-03-26 20:00] VITALS: BP 124/70; PULSE 86; RESP 16; TEMP 37.2; O2SAT 96
--- NOTE | 2023-03-26 22:35 | PC.NURSE ---
End of shift nursing note, care provided from [id number]: Pt alert and oriented, pleasant and cooperative. Had 2 walks in hallway this evening, tolerating well. SBA w/ walker. Pt up to chair for most of evening. Con't on IV abx of Vanco and Zosyn. Tolerating regular diet, eating 100% of dinner, SSI admin for elevated BS of 168 then 246. Drinking adequate water intake, saline locked per order. Vitals WDL, latest temp 99.0. PRN Tylenol and PRN Oxycodone admin each x1 this shift for moderate pain to R leg. Pt voiding without difficulty. Had scant to small BM this evening, pt states although mostly flatus. Ref scheduled senna as pt had a few large BMs after gastro. enema procedure earlier today. Pt had family visit in afternoon. Pt uses call light appropriately, has within reach.
[2023-03-26 23:25] VITALS: BP 144/67; PULSE 83; PULSE 88; RESP 16; TEMP 37; O2SAT 94
[2023-03-27] VITALS (8 sets, daily range): BP systolic 128–153; BP diastolic 64–84; PULSE 75–97; RESP 14–18; TEMP 36.9–38; O2SAT 92–99
[2023-03-27] MEDS: PIPERACILLIN/TAZOBACTAM 3.375 GM in 0.9 % SODIUM CHLORIDE Mini-bag 100 ML IVPB ×4 (03:41→21:13)
[2023-03-27] MEDS: ACETAMINOPHEN 650 MG TABLET ER 1300 MG PO ×2 (04:11→21:11)
--- NOTE | 2023-03-27 06:51 | PC.NURSE ---
Pt alert and oriented x3. Pt had a 100.4 fever. Pt reports 3/10 pain in left hip, pain and fever managed with PRN Tylenol. Pt denies chest pain, SOB, and N/V. Pt is up A1 with walker and gait belt. Pt is tolerating a regular diet, voiding and saline locked. Pt slept throughout most of night.?
[2023-03-27 07:05] LABS: Basophils Percent Auto 0.3 % (0.0-3.0); Eosinophils Percent Auto 1.4 % (0.0-7.0); Hematocrit 31.5 % (33.0-51.0); Hemoglobin* 10.4 gm/dL (12.0-16.0); Lymphocytes Percent Auto 7.2 % (20-44); Mean Corpuscular HGB Conc 33 gm/dL (32-36); Mean Corpuscular Hemoglobin 27 pg (26-34); Mean Corpuscular Volume 81 fL (80-100); Monocytes Percent Auto 7.9 % (0.0-11.0); Neutrophils Percent Auto 81.2 % (42.0-72.0); Platelet Count* 334 K/uL (140-440); RDW Coefficient of Variation % 14.8 % (11.5-15.5); Red Blood Count 3.88 m/uL (4.00-5.20); White Blood Count* 11.46 K/uL (4.50-11.00)
[2023-03-27 07:08] LABS: Slide Review Reflex No
[2023-03-27 07:20] LABS: Chloride* 104 mmol/L (96-114); Potassium* 3.2 mmol/L (3.6-5.1); Sodium* 136 mmol/L (135-149)
[2023-03-27 07:23] LABS: Carbon Dioxide* 20 mmol/L (20-32); Creatinine* 0.9 mg/dL (0.5-1.5); Est. Creatinine Clearance* 39.59; Estimated Glomerular Filt Rate 66 ml/min
[2023-03-27 07:24] LABS: Blood Urea Nitrogen* 16 mg/dL (7-30); Calcium* 8.3 mg/dL (8.4-10.6); Glucose* 218 mg/dL (60-115)
[2023-03-27 08:27] LABS: C Reactive Protein* 34.4 mg/dL (0.5-1.0)
[2023-03-27] MEDS: SODIUM CHLORIDE 0.9 % (FLUSH) 10 ML SYRINGE 5 ML IVF ×2 (09:46→21:12)
[2023-03-27] MEDS: AMLODIPINE 5 MG TABLET 2.5 MG PO ×2 (09:51→21:10)
[2023-03-27] MEDS: SENNOSIDES 1 TAB TABLET 2 TAB PO (09:51)
[2023-03-27] MEDS: polyethylene glycoL 3350 17 GM PACK PO (09:52)
[2023-03-27] MEDS: IBUPROFEN 400 MG TABLET PO (12:52)
--- NOTE | 2023-03-27 14:02 | P.IMPN_ITS ---
Progress Note: A&P Assessment and plan (1) Abscess, psoas: Problem details: - Zosyn and Vancomycin initiated in ED (03/24), will continue these - General Surgery consulting. I am concerned a that this is metastatic infection from another source of bacteremia such as endocarditis and or dental infection - Query systemic disease (recent dental work, MCP erythema/edema); blood cultures pending, TTE ordered Status: Acute (2) Non-insulin dependent diabetes mellitus: Problem details: - last A1C 8.0 01/2023 - accuchecks, SSI Status: Acute (3) Bacteremia: Problem details: Vancomycin and Zosyn pending cultures sensitivities and identification of source. Currently showing alpha hemolytic strep. Considerations include strep pneumonia and strep viridans, the latter may have come from her root canal and dental abscess. Depending on findings on culture and her clinical course may need a transesop hageal echo and Infectious Disease consult. This could be done as outpatient or inpatient depending on her clinical course. Status: Acute Plan 1. Reviewed above with patient. 2. Await results blood cultures to identify the organism and organism sensitivities to various antibiotics. 3. If we grew out streptococcal viridans then will need additional testing for possible bacterial endocarditis with transesophageal echocardiography. 4. Meanwhile continue with current antibiotics of Zosyn and vancomycin. 5. Patient agreeable to above stated plans and recommendations. Time Spent With Patient Total time spent: 40 minutes Subjective Time Seen by Provider: 09:30 Date Seen: 03/27/23 Interval history: Ana Edwards is a 77 year old female who presented to the emergency room with persistent constipation. It had been at least 6 days since her most recent bowel movement.? She was seen in the emergency room 2 days prior to this admission and started on MiraLax without relief.? No prior history of constipation. She did not have any nausea or vomiting; no urinary symptoms. Beginning 2 days prior to admission, she also noted pain in her right buttock that radiate inferiorly or superiorly, depending on positioning.? Pain had been so severe that she had to use a walker to ambulate at home.? She has had pain relief with Advil and Tylenol; notes that she feels poorly when these medications wear off.? She is unsure if she has had any objective fevers. She has had no trauma. She has not had any other symptoms of illness. She had dental work done, root canal, at the beginning of February, around the end of the 1st week of February. Previous history of cervical spine surgery with some lower extremity neuropathic complications in about 2018 at [facility]. Since she has not felt well, she has been holding her metformin and aspirin; still has been taking her amlodipine. She is not aware of a fever prior to hospitalization but had a fever during the night. 4 of 4 blood cultures turned positive early on the morning of admission with Gram-positive cocci in chains. Preliminary test shows alpha hemolytic strep. Identification and organism sensitivity are still pending. Patient underwent Gastrografin enema yesterday. This showed no obstruction or other colon abnormalities. Following that she has had moderate diarrhea. She reports feeling very well and is anxious to eat. She specifically notes that her pain with walking is much improved. Still using a walker. Exam Narrative: Exam Narrative: Appears comfortable no acute distress. Alert and oriented to self, place, time, situation. Vision and hearing are grossly normal. No icterus or conjunctival injection. Friendly, articulate, cooperative. Mood and affect are congruent. Right 2nd MCP is erythematous and tender. Patient notes this is a great improvement compared to 2 days ago. She is able to move digits 1, 3, 4, 5 at the MCP joint, but not at 2nd MCP. Right digits and hand are mildly swollen co mpared to the left. No other joints involved. No other skin findings. Lungs are clear to auscultation. Heart tones with regular rhythm without murmur. Abdomen with active bowel sounds, soft, nontender. Ambulates with walker and standby assist. Const: Vital Signs, click to edit/add: Vital Signs - 24 hr 03/26/23 16:00 03/26/23 16:00 03/26/23 20:00 Temperature 99.0 F 99.0 F Pulse Rate [Left A pical] Pulse Rate [Left P ulse Oximeter] 88 88 86 Respiratory Rate 18 18 16 Blood Pressure [Le ft Arm] Blood Pressure [Ri ght Arm] 121/71 124/70 Pulse Oximetry 97 96 Oxygen Delivery Me thod Room Air Room Air 03/26/23 23:25 03/26/23 23:25 03/27/23 03:30 Temperature 98.6 F 100.4 F H Pulse Rate [Left A pical] 88 Pulse Rate [Left P ulse Oximeter] 83 88 97 Respiratory Rate 16 16 14 Blood Pressure [Le ft Arm] Blood Pressure [Ri ght Arm] 144/67 H 150/64 H Pulse Oximetry 94 97 Oxygen Delivery Me thod Room Air Room Air 03/27/23 04:11 03/27/23 06:11 03/27/23 07:40 Temperature 100.4 F H 98.5 F Pulse Rate [Left A pical] Pulse Rate [Left P ulse Oximeter] 90 Respiratory Rate 18 Blood Pressure [Le ft Arm] Blood Pressure [Ri ght Arm] Pulse Oximetry Oxygen Delivery Me thod 03/27/23 07:40 03/27/23 11:00 Temperature 98.4 F 98.9 F Pulse Rate [Left A pical] 90 Pulse Rate [Left P ulse Oximeter] 90 Respiratory Rate 18 17 Blood Pressure [Le ft Arm] 133/69 Blood Pressure [Ri ght Arm] 128/84 Pulse Oximetry 97 99 Oxygen Delivery Me thod Room Air Room Air Documenting provider has reviewed patient's vital signs: yes Labs Labs: Laboratory Results - last 24 hr 03/27/23 06:09 WBC 11.46 H RBC 3.88 L Hgb 10.4 L Hct 31.5 L MCV 81 MCH 27 MCHC 33 RDW Coeff of [place] 14.8 Plt Count 334 Neut % (Auto) 81.2 H Lymph % (Auto) 7.2 L [place] % (Auto) 7.9 Eos % (Auto) 1.4 Baso % (Auto) 0.3 Neut # (Auto) 9.30 H Lymph # (Auto) 0.80 L [place] # (Auto) 0.90 Eos # (Auto) 0.20 Baso # (Auto) 0.00 Sodium 136 Potassium 3.2 L Chloride 104 Carbon Dioxide 20 BUN 16 Creatinine 0.9 Estimated Creat Clear 39.59 Estimated GFR 66 Glucose 218 H Calcium 8.3 L C-Reactive Protein 34.4 H
--- NOTE | 2023-03-27 16:00 | PC.NURSE ---
0715: Patient up w/walker and SBA in room and sutton today. Hip pain rated 4/10, alleviated with ibuprofen. Showered this morning. IV infiltrated, replaced in left wrist. Saline locked between antibiotics, tolerating regular diet. Loose stool noted this morning, partially incontinent.
--- NOTE | 2023-03-27 21:35 | PC.NURSE ---
Shift note: pt had watery stool 6x and therefore Senna was held. Had low degree fever of 100F and complained of chills. PRN Tylenol 1300mg and extra blanket given. Pt is pleasant and cooperate with treatment and care. Ambulate with A1 in the room and hallway. Bloog sugar level for 0 and 2099 were 176 and 258 respectively and insulin given per sliding scale parameter. Pt continue to receive antibiotics.
[2023-03-28] VITALS (9 sets, daily range): BP systolic 128–155; BP diastolic 66–83; PULSE 71–84; RESP 16–18; TEMP 36.8–37.8; O2SAT 95–97
[2023-03-28] MEDS: PIPERACILLIN/TAZOBACTAM 3.375 GM in 0.9 % SODIUM CHLORIDE Mini-bag 100 ML IVPB ×4 (04:04→21:31)
[2023-03-28] MEDS: IBUPROFEN 400 MG TABLET PO ×3 (04:22→22:09)
[2023-03-28 06:08] LABS: Basophils Absolute Auto 0.02 K/uL (0.00-0.30); Basophils Percent Auto 0.2 % (0.0-3.0); Eosinophils Absolute Auto 0.17 K/uL (0.00-0.50); Eosinophils Percent Auto 1.9 % (0.0-7.0); Hemoglobin* 10.6 gm/dL (12.0-16.0); Immature Granulocytes Abs Auto 0.35 K/uL (0.00-0.30); Immature Granulocytes Pct Auto 3.9 %; Lymphocytes Percent Auto 8.2 % (20-44); Mean Corpuscular HGB Conc 33 gm/dL (32-36); Mean Corpuscular Hemoglobin 27 pg (26-34); Mean Corpuscular Volume 80 fL (80-100); Monocytes Percent Auto 9.3 % (0.0-11.0); Neutrophils Percent Auto 76.5 % (42.0-72.0); Platelet Count* 368 K/uL (140-440); RDW Coefficient of Variation % 14.7 % (11.5-15.5); Red Blood Count 3.99 m/uL (4.00-5.20); White Blood Count* 8.95 K/uL (4.50-11.00)
[2023-03-28 06:11] LABS: Slide Review Reflex Yes
[2023-03-28 06:19] LABS: Chloride* 105 mmol/L (96-114); Sodium* 138 mmol/L (135-149)
[2023-03-28 06:20] LABS: Potassium* 3.1 mmol/L (3.6-5.1)
[2023-03-28 06:22] LABS: Creatinine* 0.7 mg/dL (0.5-1.5); Est. Creatinine Clearance* 39.59; Estimated Glomerular Filt Rate 90 ml/min
[2023-03-28 06:23] LABS: Blood Urea Nitrogen* 13 mg/dL (7-30); Calcium* 8.2 mg/dL (8.4-10.6); Carbon Dioxide* 24 mmol/L (20-32); Glucose* 220 mg/dL (60-115)
[2023-03-28 06:28] LABS: Slide Review Acceptable Review (Acceptable)
[2023-03-28 06:39] LABS: C Reactive Protein* 22.3 mg/dL (0.5-1.0)
--- NOTE | 2023-03-28 07:56 | PC.NURSE ---
Pt alert and oriented x3. Afebrile but noted to be sweaty during night, changed gown and linen. Pt reports 4/10 pain in right hip, pain?managed with PRN medications. Pt denies chest pain, SOB, and N/V. Pt was up to the bathroom x2 with one incontinent loose stool in brief and toilet. Pt is up A1 with walker and gait belt. Pt is tolerating a regular diet, voiding and saline locked. Pt slept throughout most of night.?
[2023-03-28] MEDS: AMLODIPINE 5 MG TABLET 2.5 MG PO ×2 (08:38→21:31)
[2023-03-28] MEDS: SODIUM CHLORIDE 0.9 % (FLUSH) 10 ML SYRINGE 5 ML IVF ×2 (10:07→21:33)
[2023-03-28] MEDS: 0.9 % SODIUM CHLORIDE 250 ml IV (11:43)
--- NOTE | 2023-03-28 13:32 | PM.IMPN1 ---
Progress Note: A&P Assessment and plan (1) Abscess, psoas: Problem details: - blood cultures grew out streptococcal pneumoniae. Zosyn and Vancomycin initiated in ED (03/24), will continue these until received the results of the streptococcal pneumoniae sensitivities. - General Surgery consulting. - I am less concerned that this is metastatic infection from another source of bacteremia such as endocarditis and or dental infection. - there is still a possibility that patient may have had a septic arthritis in the 2nd MCP. - consider reimaging psoas muscle tomorrow, after 5 days of IV antibiotics. Status: Acute (2) Non-insulin dependent diabetes mellitus: Problem details: - last A1C 8.0 01/2023 - accuchecks, SSI Status: Acute (3) Bacteremia: Problem details: Vancomycin and Zosyn pending cultures sensitivities and identification of source. Reference lab identified the organism is Streptococcus pneumoniae. Less likely that this was related to dental work. Less likely that this could represent bacterial endocarditis. Needs complete at least 5 days of IV antibiotics. After today patient will have completed 4 days of IV antibiotics. Still needs another 24 hours. Status: Acute Plan 1. Reviewed impression with patient. 2. Answered patient's questions. 3. Continue with current treatment plans. 4. Continue to await results of streptococcal pneumoniae sensitivities. 5. Consider repeat MRI tomorrow to reassess psoas muscle. 6. Consider discussion with Orthopedic surgery. Time Spent With Patient Total time spent: 35 minutes Subjective Time Seen by Provider: 08:30 Date Seen: 03/28/23 Interval history: Ana Edwards is a 77 year old female who presented to the emergency room with persistent constipation. It had been at least 6 days since her most recent bowel movement.? She was seen in the emergency room 2 days prior to this admission and started on MiraLax without relief.? No prior history of constipation. She did not have any nausea or vomiting; no urinary symptoms. Beginning 2 days prior to admission, she also noted pain in her right buttock that radiate inferiorly or superiorly, depending on positioning.? Pain had been so severe that she had to use a walker to ambulate at home.? She has had pain relief with Advil and Tylenol; notes that she feels poorly when these medications wear off.? She is unsure if she has had any objective fevers. She has had no trauma. She has not had any other symptoms of illness. She had dental work done, root canal, around the end of the 1st week of February. Previous history of cervical spine surgery with some lower extremity neuropathic complications in about 2018 at [facility]. Since she has not felt well, she has been holding her metformin and aspirin; still has been taking her amlodipine. She is not aware of a fever prior to hospitalization but had a fever during the night. 4 of 4 blood cultures turned positive early on the morning of admission with Gram-positive cocci in chains. Preliminary test shows alpha hemolytic strep. Identification and organism sensitivity are still pending. Patient underwent Gastrografin enema late last week. This showed no obstruction or other colon abnormalities. Following that she has had moderate diarrhea. She reports feeling very well and is anxious to eat. She specifically notes that her pain with walking is much improved. Still using a walker. Took a shower today. Exam Narrative: Exam Narrative: Appears comfortable no acute distress. Alert and oriented to self, place, time, situation. Friendly, cooperative, articulate. Mood and affect are congruent. Still has intermittent low-grade fevers. T-max yesterday 100.4? F. T-max today 99.4? F. Right hand 2nd MCP less swollen, erythematous. Able to extend and flex her right 2nd digit today, or as yesterday she was only able to do so minimally. Less swelling of the affected right hand generally. Independent transfer, station, and gait. Lungs clear to auscultation. Heart tones with regular rhythm. No murmur, gallop, or rub. Abdomen with active bowel sounds, soft, nontender. Extremities without edema. Const: Vital Signs, click to edit/add: Vital Signs - 24 hr 03/27/23 15:00 03/27/23 19:00 03/27/23 23:25 Temperature 98.4 F 100 F H Pulse Rate [Left A pical] 75 83 83 Pulse Rate [Left P ulse Oximeter] 83 Respiratory Rate 18 18 18 Blood Pressure [Le ft Arm] Blood Pressure [Ri ght Arm] 128/81 135/66 Pulse Oximetry 96 98 Oxygen Delivery Me thod Room Air Room Air 03/27/23 23:25 03/28/23 04:00 03/28/23 04:22 Temperature 98.5 F 98.4 F 98.4 F Pulse Rate [Left A pical] 83 Pulse Rate [Left P ulse Oximeter] 83 78 Respiratory Rate 16 16 Blood Pressure [Le ft Arm] Blood Pressure [Ri ght Arm] 153/68 H 155/75 H Pulse Oximetry 92 95 Oxygen Delivery Me thod Room Air Room Air 03/28/23 07:00 03/28/23 08:00 03/28/23 11:00 Temperature 98.3 F 99.4 F Pulse Rate [Left A pical] 83 Pulse Rate [Left P ulse Oximeter] 80 84 Respiratory Rate 18 18 18 Blood Pressure [Le ft Arm] 130/66 139/83 Blood Pressure [Ri ght Arm] Pulse Oximetry 97 97 Oxygen Delivery Me thod Room Air Room Air Documenting provider has reviewed patient's vital signs: yes Labs Labs: Laboratory Results - last 24 hr 03/28/23 05:49 WBC 8.95 RBC 3.99 L Hgb 10.6 L Hct 32.0 L MCV 80 MCH 27 MCHC 33 RDW Coeff of [place] 14.7 Plt Count 368 Neut % (Auto) 76.5 H Lymph % (Auto) 8.2 L [place] % (Auto) 9.3 Eos % (Auto) 1.9 Baso % (Auto) 0.2 Neut # (Auto) 6.80 Lymph # (Auto) 0.70 L [place] # (Auto) 0.80 Eos # (Auto) 0.17 Baso # (Auto) 0.02 Diff Slide Review Acceptable Review Sodium 138 Potassium 3.1 L Chloride 105 Carbon Dioxide 24 BUN 13 Creatinine 0.7 Estimated Creat Clear 39.59 Estimated GFR 90 Glucose 220 H Calcium 8.2 L C-Reactive Protein 22.3 H
--- NOTE | 2023-03-28 15:53 | PC.NURSE ---
End of shift-- Pleasant and cooperative, alert and oriented patient. VSS and pt is afebrile. SPO2 maintained >90% on RA. She c/o some right sided pain today and was given Motrin once with stated relief. LS CTA. Pt denied nausea and tolerated a regular diet without difficulty. She had a large BM this morning. Pt ambulated in hallway 3x today with SBA and walker and tolerated it very well. Report to LUC Wang.
[2023-03-28] MEDS: ACETAMINOPHEN 650 MG TABLET ER 1300 MG PO (15:58)
[2023-03-28 17:43] LABS: C Reactive Protein* 20.4 mg/dL (0.5-1.0)
[2023-03-28 18:39] LABS: Erythrocyte SedimentationRate* 97 mm/hr (2-20)
--- NOTE | 2023-03-28 19:35 | PC.NURSE ---
Nursing Care Hours: [id number] Pt this shift calm and cooperative, alert and oriented. SB assist with walker. Walked sutton x1. Temporal temperature of 100.0, Tylenol given. No c/o pain at this time. IV in L wrist infiltrated, DC'd and new one placed in R wrist. Received all medications NOV.
[2023-03-29] MEDS: ACETAMINOPHEN 650 MG TABLET ER 1300 MG PO ×2 (01:29→13:09)
[2023-03-29 03:40] VITALS: BP 155/71; PULSE 82; RESP 14; TEMP 36.9; O2SAT 92
[2023-03-29] MEDS: PIPERACILLIN/TAZOBACTAM 3.375 GM in 0.9 % SODIUM CHLORIDE Mini-bag 100 ML IVPB ×2 (03:49→09:18)
--- NOTE | 2023-03-29 06:49 | PC.NURSE ---
Pt alert and oriented x3. Afebrile. Pt reports 4/10 pain in right hip, pain?managed with PRN medications. Pt denies chest pain, SOB, and N/V. Pt was up to the bathroom x2 with one medium formed stool and one incontinent BM in bed, linens and gown changed. Pt is up SBA?with walker and gait belt. Pt is tolerating a regular diet, voiding and saline locked. Pt slept throughout most of night.?
[2023-03-29 07:06] LABS: Basophils Absolute Auto 0.03 K/uL (0.00-0.30); Basophils Percent Auto 0.4 % (0.0-3.0); Eosinophils Absolute Auto 0.24 K/uL (0.00-0.50); Eosinophils Percent Auto 3.1 % (0.0-7.0); Hemoglobin* 10.8 gm/dL (12.0-16.0); Immature Granulocytes Abs Auto 0.22 K/uL (0.00-0.30); Immature Granulocytes Pct Auto 2.8 %; Lymphocytes Percent Auto 12.5 % (20-44); Mean Corpuscular HGB Conc 33 gm/dL (32-36); Mean Corpuscular Hemoglobin 26 pg (26-34); Mean Corpuscular Volume 80 fL (80-100); Monocytes Percent Auto 8.6 % (0.0-11.0); Neutrophils Percent Auto 72.6 % (42.0-72.0); Platelet Count* 397 K/uL (140-440); RDW Coefficient of Variation % 14.6 % (11.5-15.5); Red Blood Count 4.11 m/uL (4.00-5.20); White Blood Count* 7.81 K/uL (4.50-11.00)
[2023-03-29 07:07] LABS: Slide Review Reflex No
[2023-03-29 07:17] LABS: Chloride* 104 mmol/L (96-114); Potassium* 3.2 mmol/L (3.6-5.1); Sodium* 139 mmol/L (135-149)
[2023-03-29 07:20] LABS: Creatinine* 0.6 mg/dL (0.5-1.5); Est. Creatinine Clearance* 39.59; Estimated Glomerular Filt Rate 93 ml/min
[2023-03-29 07:21] LABS: Blood Urea Nitrogen* 9 mg/dL (7-30); Calcium* 8.5 mg/dL (8.4-10.6); Carbon Dioxide* 27 mmol/L (20-32); Glucose* 201 mg/dL (60-115)
[2023-03-29 07:35] LABS: C Reactive Protein* 18.5 mg/dL (0.5-1.0)
[2023-03-29 07:47] LABS: Erythrocyte SedimentationRate* 99 mm/hr (2-20)
[2023-03-29 07:57] VITALS: BP 147/75; PULSE 68; RESP 18; TEMP 37.1; O2SAT 96
[2023-03-29] MEDS: AMLODIPINE 5 MG TABLET 2.5 MG PO (09:17)
[2023-03-29 11:56] VITALS: BP 112/65; PULSE 88; RESP 18; TEMP 37.1
[2023-03-29] MEDS: LACTOBACILLUS ACIDOPHILUS 1 TABLET 2 TAB PO (13:08)
[2023-03-29] MEDS: 0.9 % SODIUM CHLORIDE 250 ml IV (13:12)
--- NOTE | 2023-03-29 15:54 | PM.DS1 ---
DS: Providers Provider Time Seen by Provider: 09:30 Date Seen: 03/29/23 Date of admission: 03/24/23 20:01 Primary care physician: Conchita Hussein MD Admitting Clinician: Emma House MD Consults: 03/25/23 09:57 Consult to Occupational Therapy [CONS] Routine Comment: Reason(s) for OT Consult:: Evaluate and Treat Any Restrictions?:: No Restrictions Consult to Physical Therapy [CONS] Routine Comment: Reason(s) for PT Consult:: Evaluate Ambulation Any Restrictions?:: No Restrictions 03/26/23 07:35 Consult to Physician [CONS] Routine Comment: Consulting Provider: Ivania Alberto Has provider been notified: Yes Attending Physician on discharge: Esequiel Chris MD Date of Discharge: 03/29/23 DS: Diagnosis Discharge Diagnosis (1) Acute constipation: Status: Acute Problem details: She has a long tortuous dilated colon suggested that this may be a more chronic problem. She is now had diarrhea following her Gastrografin enema. Will institute senna and MiraLax treatment to prevent recurrent constipation. Continue to monitor. (2) Abscess, psoas: Status: Acute Problem details: - blood cultures eventually grew out streptococcal pneumoniae. In hospital completed 5 days of IV Zosyn and Vancomycin, initiated in ED (03/24). - consider reimaging with CT of chest, abdomen, and pelvis if recurrent fevers, to assess for possible seeding, that is additional abscesses. - recommend repeat MRI 1-2 weeks to assess response to antibiotic therapy. (3) Bacteremia: Status: Acute Problem details: - Right psoas abscess and possible right 2nd MCP joint seeding. - Completed 5 days of IV vancomycin and Zosyn pending culture ID and sensitivities. Grew out arroyo-sensitive Streptococcus pneumoniae. Needs to complete 10 more days of cefuroxime 500 mg po BID. (4) Left pelvic adnexal fluid collection: Status: Acute Problem details: Outpatient follow-up. Not likely related to current hospitalization. (5) Endometrial thickening on ultrasound: Status: Acute Problem details: Outpatient follow-up. Not currently bleeding. (6) Antibiotic-associated diarrhea: Status: Acute (7) Essential hypertension: Status: Acute Problem details: - on Amlodipine 2.5mg BID as an outpatient, will continue this (8) Non-insulin dependent diabetes mellitus: Status: Acute Problem details: - last A1C 8.0 01/2023 - [employer] DS: Summary Hospital Course Hospital Course: Ana Edwards is a 77 year old female who presented to the emergency room with persistent constipation. It had been at least 6 days since her most recent bowel movement.? She was seen in the emergency room 2 days prior to this admission and started on MiraLax without relief.? No prior history of constipation. She did not have any nausea or vomiting; no urinary symptoms. Beginning 2 days prior to admission, she also noted pain in her right buttock that radiate inferiorly or superiorly, depending on positioning.? Pain had been so severe that she had to use a walker to ambulate at home.? She has had pain relief with Advil and Tylenol; notes that she feels poorly when these medications wear off.? She is unsure if she has had any objective fevers.? She has had no trauma.? She has not had any other symptoms of illness.? She had dental work done, root canal, around the end of the week of February. Previous history of cervical spine surgery with some lower extremity neuropathic complications in about 2017 at [facility]. Since she has not felt well, she has been holding her metformin and aspirin; still has been taking her amlodipine. She is not aware of a fever prior to hospitalization but had a fever during the night. 4 of 4 blood cultures turned positive early on the morning of admission with Gram-positive cocci in chains.? Preliminary test shows alpha hemolytic strep.? Eventually blood cultures grew out streptococcal pneumoniae, pansensitive. Starting on hospital day 1, she was started on empiric piperacillin and tazobactam and vancomycin intravenously. She received 5 days of these heavy antibiotics. Tolerated that well. On date of discharge we switched her to cefuroxime acetate 500 mg p.o. b.i.d. for 10 more days. Multiple images were obtained in an effort to try to locate a possible source of infection. Ultimately inflammation and abscess was found in the right psoas muscle. General surgery as well as brand ambassador promotional model surgery consultations were obtained. General surgery and our radiologist did not feel that there was anything that could be reached by Surgical or Interventional Radiology techniques. Head Refrigeration Engineer surgery felt that findings noted and pelvic vaginal ultrasound could be followed up in the outpatient setting. Patient underwent Gastrografin enema late last week.? This showed no obstruction or other colon abnormalities.? Following that she has had moderate diarrhea.? She reports feeling very well and is anxious to eat.? She specifically notes that her pain with walking is much improved.? Still using a walker. Status at Discharge Overall status at discharge: patient is progressing back to baseline Time Spent with Patient Time attestation: Total time spent providing and/or coordinating discharge services: Time spent: Greater than 30 minutes Exam Narrative: Exam Narrative: Appears comfortable no acute distress.? Alert and oriented to self, place, time, situation.? Friendly, cooperative, articulate.? Mood and affect are congruent. Still has intermittent low-grade fevers.? T-max yesterday 99.4? F. afebrile today. Right hand 2nd MCP less swollen, erythematous.? Able to completely extend and flex her right 2nd digit today, whereas 2 days prior she was only able to do so minimally.? Less swelling of the affected right hand generally. Independent transfer, station, and gait.? Lungs clear to auscultation.? Heart tones with regular rhythm.? No murmur, gallop, or rub. Abdomen with active bowel sounds, soft, nontender. Extremities without edema. Const: Vital Signs, click to edit/add: Vital Signs - 24 hr 03/28/23 15:58 03/28/23 20:00 03/28/23 22:15 Temperature 100.0 F H 98.4 F Pulse Rate Pulse Rate [Left A pical] 84 71 Pulse Rate [Left P ulse Oximeter] 84 71 Respiratory Rate 18 18 Blood Pressure Blood Pressure [Le ft Arm] 133/74 Blood Pressure [Ri ght Arm] Pulse Oximetry 95 Oxygen Delivery Me thod Room Air 03/28/23 22:15 03/29/23 03:40 03/29/23 07:57 Temperature 98.7 F 98.4 F 98.7 F Pulse Rate Pulse Rate [Left A pical] 71 68 Pulse Rate [Left P ulse Oximeter] 71 82 Respiratory Rate 18 14 18 Blood Pressure Blood Pressure [Le ft Arm] Blood Pressure [Ri ght Arm] 150/73 H 155/71 H 147/75 H Pulse Oximetry 96 92 96 Oxygen Delivery Co thod Room Air Room Air Room Air 03/29/23 11:56 Temperature 98.7 F Pulse Rate 88 Pulse Rate [Left A pical] Pulse Rate [Left P ulse Oximeter] Respiratory Rate 18 Blood Pressure 112/65 Blood Pressure [Le ft Arm] Blood Pressure [Ri ght Arm] Pulse Oximetry Oxygen Delivery Me thod DS: Data Data Completed and Pending Labs on day of discharge: Labs from last 24 hours 03/29/23 03/28/23 06:49 17:00 WBC 7.81 RBC 4.11 Hgb 10.8 L Hct 33.0 MCV 80 MCH 26 MCHC 33 RDW Coeff of [place] 14.6 Plt Count 397 Neut % (Auto) 72.6 H Lymph % (Auto) 12.5 L [place] % (Auto) 8.6 Eos % (Auto) 3.1 Baso % (Auto) 0.4 Neut # (Auto) 5.70 Lymph # (Auto) 1.00 [place] # (Auto) 0.70 Eos # (Auto) 0.24 Baso # (Auto) 0.03 ESR 99 H 97 H Sodium 139 Potassium 3.2 L Chloride 104 Carbon Dioxide 27 BUN 9 Creatinine 0.6 Estimated Creat Clear 39.59 Estimated GFR 93 Glucose 201 H Calcium 8.5 C-Reactive Protein 18.5 H 20.4 H Preliminary micro results at discharge 03/27/23 06:09 Blood Culture - Preliminary Blood NO GROWTH AFTER 48 HOURS 03/26/23 06:01 Blood Culture - Preliminary Blood NO GROWTH AFTER 72 HOURS 03/28/23 05:49 Blood Culture - Preliminary Blood NO GROWTH AFTER 24 HOURS Imaging Abdominal x-ray: Attestation: I have reviewed the pertinent imaging results. Radiologist's impression: 03/22/2023, IMPRESSION: Moderate to severe stool seen throughout the colon consistent with constipation. 03/24/2023, IMPRESSION: Above average colonic stool volume. Lumbar spine x-ray: Attestation: I have reviewed the pertinent imaging results. Radiologist's impression: Impression: Moderate degenerative changes of the lumbar spine without acute osseous abnormality. CT scan - abdomen: Attestation: I have reviewed the pertinent imaging results. Radiologist's impression: 03/22/2020, IMPRESSION: 1. No dilated loops of large or small intestine with a large amount of stool within the colon. 2. Left adnexal cystic lesion measuring 2.1 centimeters. Follow-up outpatient pelvic ultrasound suggested. 03/24/2023, IMPRESSION: IMPRESSION: Large amount of stool in the colon is unchanged. New rim enhanced seen fluid collection in the right psoas muscle. Mild enlargement of the right psoas muscle compared to the left. Findings could represent hematoma or abscess. Fluid collection in the left pelvis. This could represent an abnormal ovarian cyst or abscess. There is also abnormal thickening of the endometrium. Consider pelvic ultrasound for further evaluation of these findings. MR - Other: Attestation: I have reviewed the pertinent imaging results. Radiologist's impression: MRI of lumbar spine 03/24/2023 Impression: 1. Intramuscular edema throughout the proximal right psoas, with a couple of cystic-appearing intermuscular collections measuring slightly greater than 1 cm at the L3-L4 levels, suspicious for intramuscular abscesses. Clinical correlation advised. 2. No suspicious intradiscal fluid signal or aggressive osseous erosions at the L2-3 or L3-4 levels to suggest discitis-osteomyelitis at this time. 3. At L2-3, mild spinal canal narrowing. 4. At L3-4, mild bilateral neural foraminal narrowing, and mild spinal canal narrowing. 5. At L4-5, moderate bilateral neural foraminal stenosis, and moderate spinal canal stenosis. MR cervical spine: Attestation: I have reviewed the pertinent imaging results. Radiologist's impression: 03/24/2023 Impression: 1. Postoperative changes of C4-7 anterior spinal fusion, and C4-T1 posterior spinal fusion. 2. No acute osseous abnormality. No suspicious fluid collection or bony edema to suggest discitis-osteomyelitis. 3. 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 Equivocal bilateral cord signal abnormality at C5, possibly myelopathy/myelomalacia versus artifact. 4. At C3-4, retrolisthesis, mild right/moderate left neural foraminal stenosis. 5. Additional mild left neural foraminal narrowing at C4-5 and C5-6. No spinal canal stenosis. 6. Cystic appearing thyroid nodules measuring up to 2.0 cm on the left. Thyroid ultrasound would better characterize characterization if clinically appropriate. MRI thoracic spine: Attestation: I have reviewed the pertinent imaging results. Radiologist's impression: 03/24/2023 IMPRESSION: 1. 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 2. No evidence of infectious process involving the thoracic spine. 3. Scattered spondylosis, including mild degenerative grade 1 spondylolisthesis, and shallow degenerative disc/endplate changes. No evidence of significant neural foraminal or spinal canal stenosis. Pelvic transvaginal ultrasound: Radiologist's impression: 03/24/2023 IMPRESSION: Thickened endometrium measuring 1.9 cm. Cystic area within the left adnexa with surrounding soft tissue echotexture measuring in total 5.0 cm, corresponding to the CT. This is indeterminate but may represent an infected fluid collection/abscess. Barium enema of colon: Radiologist's impression: 03/24/2023 Findings: There is no obstruction to the flow of contrast. Residual stool noted. Mild diverticulosis. No fistula or extravasation. Discharge Plan Discharge Disposition: Home, Self-Care Date of Admission: 03/24/23 20:01 Attending Provider on Discharge: Esequiel Chris Consulting Providers: Ivania Alberto Primary Care Provider: Conchita Hussein Condition: Stable Anticipated Discharge Date/Time: 03/29/23 13:30 Discharge Medications: New acetaminophen 650 mg Tablet Extended Release 1,300 mg PO BID 30 Days Qty: 100 0RF cefuroxime axetil 500 mg Tablet 500 mg PO BIDWM 10 Days Qty: 20 0RF Lactobacillus acidophilus 0.5 mg (100 million cell) Tablet 1 mg PO TIDWM 30 Days Qty: 120 1RF insulin aspart U-100 100 unit/mL (3 mL) insulin pen 5 unit subcut TID Qty: 15 1RF Continued aspirin 81 mg tablet,delayed release (DR/EC) 81 mg PO DAILY amlodipine 2.5 mg tablet 2.5 mg PO BID metformin 500 mg tablet extended release 24 hr 1,000 mg PO DAILY Discharge Orders: Discharge Order (Routine); Ordered 03/29/23 Ordered By: Esequiel Chris Patient Education: Cefuroxime (By mouth), Acetaminophen (By mouth), Lactulose (By mouth) (Konstuloz, Enuloz, Generlac, Kristaloz, Laktuloz), Insulin Aspart Protamine/Insulin Aspart (By injection), How to Give an Insulin Injection (DC), Insulin Pens (DC), Abscess (GEN), Warm Compress or Soak (DC), Type 2 Diabetes in the Older Adult (DC), What to Do if Your Blood Sugar is Low (DC) Activity Level: No Restrictions, Activity as Tolerated and Use Walker Discharge Diet: Diabetic Follow Up Appointments: Conchita Hussein MD [Primary Care Provider] - 04/01/23 9:05 am ([facility] in [place] for follow-up.) Forms: [employer] Info Instructions
--- NOTE | 2023-03-29 15:56 | PC.NURSE ---
shift note: vss stable. pt up indept with walker. Pt states pain to rt buttock 8/10 [address]ating down rt l/e. pt states pain burning and uncomfortable. PP+ bilat. dc'd iv to rt wrist intact. reviewed dc instructions and copies sent with pt. Pt demonstrated after verbally reviewing injection of insulin pen. Belongings sent with pt at dc
--- NOTE | 2023-04-02 13:06 | PC.NURSE ---
ACCESSED PATIENT'S CHART TO PRINT OFF MEDICAL RECORDS FOR DR. ELEUTERIO ALVAREZ WHO IS PATIENT'S PCP AND PATIENT IS AT CLINIC AT THIS TIME.
== END 2023-03-29 14:00 | disposition home or self-care (01) | DRG 372 ==
LOC: ED 17:44 → MEDSURG 18:59
PROVIDERS: Family Medicine; Internal Medicine; Admitting Provider Family Medicine; Emergency Provider Family Medicine; PCP Family Medicine; Visit Provider Family Medicine
DX: K68.12 Psoas muscle abscess (principal); L02.214 Cutaneous abscess of groin; R78.81 Bacteremia; B95.3 Streptococcus pneumoniae as the cause of diseases classified elsewhere; K59.00 Constipation, unspecified; R19.7 Diarrhea, unspecified; E11.65 Type 2 diabetes mellitus with hyperglycemia; Z79.84 Long term (current) use of oral hypoglycemic drugs; I10 Essential (primary) hypertension; M79.604 Pain in right leg; M48.061 Spinal stenosis, lumbar region without neurogenic claudication; M47.896 Other spondylosis, lumbar region; M51.36 Other intervertebral disc degeneration, lumbar region; R93.89 Abnormal findings on diagnostic imaging of other specified body structures; M25.441 Effusion, right hand; N83.202 Unspecified ovarian cyst, left side
CPT/HCPCS: 36415; 72100; 72148; 72156; 72157; 74019; 74177; 74270; 76830; 76856; 80048; 80053; 80076; 81003; 82962; 83605; 83690; 84443; 85025; 85651; 86140; 87040; 87077; 87086; 87186; 87493; 93306; 94761; 97116; 97161; 97165; 99284; 99285; A9270; A9575; J2543; J3370; J7030; J7050; J7120; Q9965; Q9967